=== PATIENT | male | born 1980 | race Caucasian/White ===

== ENCOUNTER 2024-06-07 20:42 | Inpatient (IN) ==
[2024-06-07 21:49] LABS: Basophils # (auto) 0.08 K/uL (0.00-0.20); Basophils % (auto) 0.7 %; Eosinophils # (auto) 0.27 K/uL (0.00-0.50); Eosinophils % (auto) 2.3 %; Hematocrit (blood only) 55.3 % (42.0-52.0); Immature Granulocytes # (auto) 0.04 K/uL (0.01-0.20); Immature Granulocytes % (auto) 0.3 %; Lymphocytes # (auto) 4.07 K/uL (1.20-3.40); Mean Corpuscular Hemoglobin 29.4 pg (25.0-34.0); Mean Corpuscular Hgb Conc 34.4 g/dL (32.0-36.0); Mean Corpuscular Volume 85.6 fL (80.0-100.0); Mean Platelet Volume 9.8 fL (9.4-12.4); Monocytes # (auto) 0.93 K/uL (0.11-0.59); Monocytes % (auto) 7.8 %; Neutrophils # (auto) 6.59 K/uL (1.40-6.50); Neutrophils % (auto) 54.9 %; Platelet Count 275 K/uL (130-400); RDW Coefficient of Variation 14.6 % (11.5-14.5); Red Blood Count 6.46 M/uL (4.70-6.10); White Blood Count 11.98 K/ul (4.8-10.8)
--- NOTE | 2024-06-07 23:46 | Emergency Department Note ---
Impression & Plan Acute CHF ED Provider Note NAME: SILVIO MOCK AGE: 44 SEX: M : 1980 ARRIVES VIA: Walk-In INFORMANT: Patient, ED PROVIDER(S): Paul Kay MD CHIEF COMPLAINT: Lower extremity swelling, shortness of breath HPI: This is a 44-year-old male presenting for lower extremity swelling and shortness of breath. Patient states that he began having significant leg swelling over the past few days. He notes he was previously on a fluid pill order to help with hypertension. He is taken multiple years ago. He notes that he has been having a new cough as well as difficulty breathing when he goes distances. He is no chest pain with this. No nausea or vomiting associated. No sore throat or headache. Notes bilateral legs are swollen equally, both tender to touch ROS: See above HPI for pertinent positives & negatives. A total of 10 systems reviewed and were otherwise negative. PAST MEDICAL HISTORY: See Below PAST SURGICAL HISTORY: See Below FAMILY HISTORY: See Below SOCIAL HISTORY: See Below HOME MEDICATIONS: See Below ALLERGIES: See Below VITALS: See Below PHYSICAL EXAMINATION: General: resting comfortably in no acute distress Head: Normocephalic and atraumatic Eyes: Normal inspection, extraocular muscles intact Ear, nose, throat: Normal external exam Neck: Normal range of motion Respiratory: Crackles at right base Cardiovascular: Regular rate/rhythm, no murmur GI: soft, nontender, no guarding or rebound Extremities: 2+ pitting edema without erythema Neuro: The patient awake and alert, appropriately conversive, no focal deficits, symmetric faces Skin: Warm, dry, and intact MEDICAL DECISION MAKING: This is a 44-year-old male presented for lower extremity swelling/shortness of breath. Patient was clinically well but does complain of bilateral extremity swelling with shortness of breath, is exertional. He has no chest pain or pleurisy with this. With bilateral extremity swelling with pitting edema, consider CHF. His chest x-ray is Independently interpreted by me as cardiomegaly without focal opacity. -Patient slight troponin elevation to just over 20. Will do repeat. Otherwise patient may require admission due to his new onset CHF. -ECG independently interpreted by me with sinus tachycardia rate of 105, left axis deviation, normal [place], normal QRS, normal QTc, no ST segment elevations consistent with STEMI criteria -Will met patient for suspected CHF otherwise exertional dyspnea and further workup. -Discussed care with Dr. Mcintosh Differential diagnosis: CHF, pneumonia, PE, ACS Independent History obtained from: Diagnostics interpreted by me: ECG: See above Cardiac Monitoring: An order was placed for continuous cardiac monitoring. The monitor shows a rate of 73 with sinus rhythm. Past Med/Surg History Problem List (Updated 06/09/24 @ 23:23 by Paul Kay MD) Morbid obesity Sleep apnea Pericardial effusion Volume overload Acute CHF (Acute) Diabetes HTN (hypertension) (Chronic) Back pain (Acute) Back pain (Acute) Forearm contusion (Acute) Lumbar radiculopathy (Acute) Lumbar radiculopathy (Acute) Medical History Morbid obesity Surgical History History of appendectomy H/O lumbosacral spine surgery Social History Smoking Status: Current every day smoker Tobacco Type: Cigarettes Hx Alcohol Use: No Hx Substance Use: No Preferred Language: Nepali Communication Ability: Effective Scale Adjuster Required: No Beliefs That Will Affect Care: None Current Living Situation: Spouse Feels Safe at Home: Yes Allergies Allergies Allergy/AdvReac Type Severity Reaction Status Date / Time ondansetron Allergy Unknown pre-syncope Verified 10/09/13 07:31 Home Meds Home Medications Medication Instructions Recorded Confirmed lisinopril 40 mg tablet 40 mg PO QAM 06/07/24 06/07/24 meloxicam 15 mg tablet 15 mg PO DAILY PRN Pain 06/07/24 06/07/24 metoprolol succinate 25 mg 25 mg PO QAM 06/07/24 06/07/24 tablet,extended release 24 hr rosuvastatin 5 mg tablet 5 mg PO QAM 06/07/24 06/07/24 testosterone 1 dose INJ DAILY 06/08/24 06/08/24 Results & Data (ED) Vital Signs Vital Signs - 24 hr 06/07/24 20:44 06/08/24 00:00 06/08/24 00:01 Temperature 36.0 C L Temperature Source Temporal Artery Scan Pulse Rate 110 H 97 H 100 H Pulse Strength Normal Respiratory Rate 16 22 Respiratory Effort / Characteristics Non-Labored Spontaneous Respiratory Depth Normal Respiratory Pattern Regular Blood Pressure 158/96 H Blood Pressure Mean 114 Pulse Oximetry 94 93 Oxygen Delivery Method Room Air Sepsis Recent Fever Within 48 Hours No Sepsis New/Unexplained Change in Mental Status No Sepsis Action Taken by Nursing No Action Required 06/08/24 00:07 Temperature Temperature Source Pulse Rate Pulse Strength Respiratory Rate Respiratory Effort / Characteristics Respiratory Depth Respiratory Pattern Blood Pressure Blood Pressure Mean Pulse Oximetry 93 Oxygen Delivery Method Room Air Sepsis Recent Fever Within 48 Hours Sepsis New/Unexplained Change in Mental Status Sepsis Action Taken by Nursing Laboratory Data 06/09/24 05:44 06/09/24 05:44 Lab Results 06/07/24 06/07/24 06/08/24 Range/Units 21:10 22:44 00:04 WBC 11.98 H (4.8-10.8) K/ul RBC 6.46 H (4.70-6.10) M/uL Hgb 19.0 H (14.0-18.0) g/dl Hct 55.3 H (42.0-52.0) % MCV 85.6 (80.0-100.0) fL MCH 29.4 (25.0-34.0) pg MCHC 34.4 (32.0-36.0) g/dL RDW Std Deviation 43.0 (36.4-46.3) fL RDW Coeff of Lee 14.6 H (11.5-14.5) % Plt Count 275 (130-400) K/uL MPV 9.8 (9.4-12.4) fL Immature Gran % (Auto) 0.3 % Neut % (Auto) 54.9 % Lymph % (Auto) 34.0 % [place] % (Auto) 7.8 % Eos % (Auto) 2.3 % Baso % (Auto) 0.7 % Neut # (Auto) 6.59 H (1.40-6.50) K/uL Lymph # (Auto) 4.07 H (1.20-3.40) K/uL [place] # (Auto) 0.93 H (0.11-0.59) K/uL Eos # (Auto) 0.27 (0.00-0.50) K/uL Baso # (Auto) 0.08 (0.00-0.20) K/uL Immature Gran # (Auto) 0.04 (0.01-0.20) K/uL PT 9.6 (9.0-12.0) Seconds INR 0.9 (0.9-1.1) APTT 25 (21-31) Seconds PTT Ratio 0.9 Sodium Cancelled TNP Potassium Cancelled TNP Chloride Cancelled 99 Carbon Dioxide Cancelled 27 Anion Gap Cancelled TNP BUN Cancelled 19 Creatinine Cancelled 1.24 Est Cr Clr Drug Dosing Cancelled 107.7 eGFR Cancelled 72.62 BUN/Creatinine Ratio Cancelled 15.3 Glucose Cancelled 139 H Calcium Cancelled 9.3 Total Bilirubin Cancelled 0.5 AST Cancelled TNP ALT Cancelled 38 Alkaline Phosphatase Cancelled TNP Troponin I High Sens 21.7 H 22.6 H (0-20) pg/ml B-Natriuretic Peptide 60 (0-100) pg/ml Total Protein Cancelled 7.2 Albumin Cancelled TNP Globulin Cancelled TNP Albumin/Globulin Ratio Cancelled TNP SARS-CoV-2 (PCR) NEGATIVE (Negative) Influenza Type A (PCR) Negative (Neg) Influenza Type B (PCR) Negative (Neg) RSV (RT-PCR) Negative (Neg) Administered Medications Furosemide (Furosemide 40 Mg/4 Ml Vial) 40 mg IV [id number] [facility] Stop: 07/08/24 08:59 Last Admin: 06/09/24 17:34 Dose: 40 mg Documented By: Admin: 06/09/24 09:50 Dose: 40 mg Documented By: Admin: 06/08/24 18:20 Dose: 40 mg Documented By: Admin: 06/08/24 08:12 Dose: 40 mg Documented By: ROSSI Heparin Sodium (Porcine) (Heparin Sod 5,000 Unit/0.5 Ml Vial) 7,500 units SQ Q12 [facility] Stop: 07/08/24 08:59 Last Admin: 06/09/24 21:47 Dose: 7,500 units Documented By: Admin: 06/09/24 10:03 Dose: 7,500 units Documented By: Admin: 06/08/24 20:28 Dose: 7,500 units Documented By: Admin: 06/08/24 08:11 Dose: 7,500 units Documented By: ROSSI Insulin Aspart (Insulin Aspart Per Unit Charge) 0 units SC ACHS [facility] Stop: 07/08/24 07:29 Last Admin: 06/09/24 21:48 Dose: 2 units Documented By: JENNY Co-signed By: YOVANI Admin: 06/09/24 17:45 Dose: 4 units Documented By: Co-signed By: LUIS Admin: 06/09/24 12:48 Dose: 3 units Documented By: Co-signed By: KAJAL Admin: 06/09/24 10:03 Dose: 7 units Documented By: Co-signed By: KAJAL Admin: 06/08/24 20:22 Dose: Not Given Documented By: Admin: 06/08/24 18:20 Dose: 2 units Documented By: LYLA Co-signed By: TEMO Admin: 06/08/24 13:51 Dose: 3 units Documented By: ROSSI Co-signed By: LUCY Admin: 06/08/24 10:35 Dose: 5 units Documented By: ROSSI Co-signed By: DEE DEE Lisinopril (Lisinopril 40 Mg Tab) 40 mg PO [facility] Stop: 07/08/24 08:59 Last Admin: 06/09/24 09:50 Dose: 40 mg Documented By: Admin: 06/08/24 08:11 Dose: 40 mg Documented By: ROSSI Metoprolol Succinate (Metoprolol Succ 25mg Ext Rel Tab) 25 mg PO [facility] Stop: 07/08/24 08:59 Last Admin: 06/09/24 09:49 Dose: 25 mg Documented By: Admin: 06/08/24 08:10 Dose: 25 mg Documented By: ROSSI Rosuvastatin Calcium (Rosuvastatin Calcium 5 Mg Tab) 5 mg PO [facility] Stop: 07/08/24 08:59 Last Admin: 06/09/24 09:49 Dose: 5 mg Documented By: Admin: 06/08/24 08:11 Dose: 5 mg Documented By: ROSSI Discontinued Medications Furosemide (Furosemide 40 Mg/4 Ml Vial) 40 mg IV ONE ONE Stop: 06/08/24 00:37 Last Admin: 06/08/24 01:02 Dose: 40 mg Documented By: ADRIANA Ceftriaxone Sodium (Rocephin) 2,000 mg in 50 mls @ 100 mls/hr IV Q24H [facility] Stop: 06/13/24 05:59 Last Infusion: 06/09/24 05:50 Dose: Infused Documented By: Admin: 06/09/24 05:16 Dose: 100 mls/hr Documented By: Infusion: 06/08/24 07:08 Dose: Infused Documented By: Admin: 06/08/24 06:38 Dose: 100 mls/hr Documented By: BRENNA Doxycycline Hyclate 100 mg/ (Dextrose) 100 mls @ 50 mls/hr IV Q12H [facility] Stop: 06/13/24 05:59 Last Infusion: 06/09/24 08:10 Dose: Infused Documented By: Admin: 06/09/24 06:02 Dose: 50 mls/hr Documented By: Infusion: 06/08/24 23:09 Dose: Infused Documented By: Admin: 06/08/24 20:12 Dose: 50 mls/hr Documented By: HDDeirdre Infusion: 06/08/24 08:38 Dose: Infused Documented By: Admin: 06/08/24 06:38 Dose: 50 mls/hr Documented By: BRENNA Ioversol (Optiray 320 125ml) 120 ml IV ONCE ONE Stop: 06/08/24 06:32 Last Admin: 06/08/24 06:32 Dose: 120 ml Documented By: SELWYN Spironolactone (Spironolactone 12.5 Mg Tab) 12.5 mg PO NOW ONE Stop: 06/09/24 15:31 Last Admin: 06/09/24 16:10 Dose: 12.5 mg Documented By: Discharge Plan Visit Data Chief Complaint: Illness Stated Complaint: LUNGS FILLED WITH FLUID,PAIN ED Provider: Paul Kay Discharge Problem: Acute CHF Patient Disposition: Admitted As Inpatient Discharge Instructions Interventions: ED Discharge Assessment Last Done: 06/08/24 02:15
[2024-06-08 00:07] LABS: INR 0.9 (0.9-1.1); Partial Thromboplastin Ratio 0.9; Partial Thromboplastin Time 25 Seconds (21-31); Prothrombin Time 9.6 Seconds (9.0-12.0)
[2024-06-08 00:16] LABS: Alanine Aminotransferase 38 U/L (7-52); BUN Creatinine Ratio 15.3 (10-20); Bilirubin,Total 0.5 mg/dl (0.2-1.0); Blood Urea Nitrogen 19 mg/dl (6-23); Calcium 9.3 mg/dl (8.6-10.3); Carbon Dioxide 27 mmol/L (21-32); Chloride 99 mmol/L (98-107); Creatinine Clr Calc Pharmacy 107.7 ml/min; Glucose 139 mg/dl (70-99(Fasting)); Total Protein 7.2 gm/dl (6.0-8.3)
[2024-06-08 00:24] LABS: Troponin I High Sensitivity 22.6 pg/ml (0-20)
--- NOTE | 2024-06-08 00:55 | History & Physical Report ---
Date of Service June 08, 2024 Assessment & Plan (1) Acute CHF: Plan: 44-year-old male with past med history significant for type 2 diabetes, hypertension, morbid obesity, obstructive sleep apnea currently not using CPAP as not tolerating it as per patient comes because of shortness of breath going on since last Monday and also swelling in the lower extremities since same time.Also complaining of 4/5 in severity pain in lower extremities. Also having cough. Denies any chest pain. No fevers. No nausea. No abdominal pain. Normal bowel and bladder movements. No headache. No dizziness. No blurred vision. No earache no runny nose or sore throat. Hemodynamics are okay. Patient says he started taking testosterone monthly injections couple of months ago.Patient states he stopped taking Mounjaro couple of weeks ago as his sugar levels were going down. Acute CHF Presents with shortness of breath and bilateral lower extremity edema Will place on IV Lasix 40 mg twice daily Daily weights I's and O's Telemetry Will follow echo empiric antibiotics will follow procalcitonin and if negative will d/c antibiotics. Consult cardiology for further recommendations B/l Lower extremity edema doppler shows:1. Limited visualization of calf vessels bilaterally due to Calf edema. 2. 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 3. A possible partial occlusive thrombus is seen within the right proximal popliteal vein. 4. Possible absent color flow in the right distal popliteal and peroneal veins could be from compressing edema. 5. Please correlate clinically. Repeating the Doppler examination after 1 to 2 weeks is advised. ordered di dmer and CTA chest Bedside doppler b/l dorsalis pedis heard. can consider repeating Doppler if cta chest negative for PE Obstructive sleep apnea Not using CPAP as he could not tolerate it Nocturnal pulse ox study Morbid obesity Counseling Type 2 diabetes Stopped Mounjaro couple of weeks ago as his sugars were going down as per his patient Will check HbA1c levels Insulin sliding scale Close follow-up Hypertension On lisinopril and metoprolol succinate Will monitor Elevated hemoglobin Follow repeat labs consider heme/onco consult DVT prophylaxis Heparin subcu Disposition Telemetry Full code. History of Present Illness Chief Complaint: Shortness of breath and lower extremity edema Primary Care Provider: Kike Juares MD 44-year-old male with past med history significant for type 2 diabetes, hypertension, morbid obesity, obstructive sleep apnea currently not using CPAP as not tolerating it as per patient comes because of shortness of breath going on since last Monday and also swelling in the lower extremities since same time.Also complaining of 4/5 in severity pain in lower extremities. Also having cough. Denies any chest pain. No fevers. No nausea. No abdominal pain. Nor mal bowel and bladder movements. No headache. No dizziness. No blurred vision. No earache no runny nose or sore throat. Hemodynamics are okay. Patient says he started taking testosterone monthly injections couple of months ago.Patient states he stopped taking Mounjaro couple of weeks ago as his sugar levels were going down. Past medical history. As mentioned above Past surgical history. Lumbosacral spine injection. Orchiopexy for undescended testes. Small bowel endoscopy with biopsy. Vasectomy. Social history. . Smokes 0.1 pack a day for last 18 years. Alcohol rarely. No drug use. Family history. Father had [place] at age 48. Hypertension. Maternal grandfather from [place] at age of 46. Paternal grandfather had hypertension and from [place]. Aunt has diabetes Allergies Allergy/AdvReac Type Severity Reaction Status Date / Time ondansetron Allergy Unknown pre-syncope Verified 10/09/13 07:31 Home Medications Medication Instructions Recorded Confirmed Type lisinopril 40 mg tablet 40 mg PO QAM 06/07/24 06/07/24 History meloxicam 15 mg tablet 15 mg PO DAILY PRN Pain 06/07/24 06/07/24 History metoprolol succinate 25 mg 25 mg PO QAM 06/07/24 06/07/24 History tablet,extended release 24 hr rosuvastatin 5 mg tablet 5 mg PO QAM 06/07/24 06/07/24 History testosterone 1 dose INJ DAILY 06/08/24 06/08/24 History Past Med/Surg History Problem List Acute CHF Diabetes HTN (hypertension) (Chronic) Back pain (Acute) Back pain (Acute) Forearm contusion (Acute) Lumbar radiculopathy (Acute) Lumbar radiculopathy (Acute) Medical History Morbid obesity Surgical History History of appendectomy H/O lumbosacral spine surgery Social History Smoking Status: Current every day smoker Tobacco Type: Cigarettes Hx Alcohol Use: No Hx Substance Use: No Preferred Language: Australian Communication Ability: Effective Presentation Specialist Required: No Beliefs That Will Affect Care: None Current Living Situation: Spouse Feels Safe at Home: Yes Review of Systems Review of Systems: All systems reviewed & are unremarkable except as noted in HPI & below Physical Exam Physical Exam: General- Not in distress Head- atraumatic Eyes- PERRL. ENT- oropharynx clear Neck- supple, no JVD. Lungs- clear to auscultation mild bibasilar crackles, no wheezing Heart- regular rate and rhythm; no murmur, no gallop. Abdomen- normal bowel sounds, soft, nontender, no distension Extremities- b/l lower extremity +2 edema with mild erythematous changes Neuro- alert, oriented PERRL,no facial palsy; no dysarthria; moves extremities Results & Data Results & Data Vital Signs (Past 12 Hours) Vital Signs Temp Pulse Resp BP Pulse Ox O2 Del Method 06/08/24 00:07 93 Room Air 06/08/24 00:01 100 H 06/08/24 00:00 97 H 22 158/96 H 93 06/07/24 20:44 36.0 C L 110 H 16 94 Room Air Diagnostic Findings Laboratory Results WBC 11.98 K/ul (4.8-10.8) H 06/07/24 21:10 RBC 6.46 M/uL (4.70-6.10) H 06/07/24 21:10 Hgb 19.0 g/dl (14.0-18.0) H 06/07/24 21:10 Hct 55.3 % (42.0-52.0) H 06/07/24 21:10 MCV 85.6 fL (80.0-100.0) 06/07/24 21:10 MCH 29.4 pg (25.0-34.0) 06/07/24 21:10 MCHC 34.4 g/dL (32.0-36.0) 06/07/24 21:10 RDW Std Deviation 43.0 fL (36.4-46.3) 06/07/24 21:10 RDW Coeff of Lee 14.6 % (11.5-14.5) H 06/07/24 21:10 Plt Count 275 K/uL (130-400) 06/07/24 21:10 MPV 9.8 fL (9.4-12.4) 06/07/24 21:10 Immature Gran % (Auto) 0.3 % 06/07/24 21:10 Neut % (Auto) 54.9 % 06/07/24 21:10 Lymph % (Auto) 34.0 % 06/07/24 21:10 [place] % (Auto) 7.8 % 06/07/24 21:10 Eos % (Auto) 2.3 % 06/07/24 21:10 Baso % (Auto) 0.7 % 06/07/24 21:10 Neut # (Auto) 6.59 K/uL (1.40-6.50) H 06/07/24 21:10 Lymph # (Auto) 4.07 K/uL (1.20-3.40) H 06/07/24 21:10 [place] # (Auto) 0.93 K/uL (0.11-0.59) H 06/07/24 21:10 Eos # (Auto) 0.27 K/uL (0.00-0.50) 06/07/24 21:10 Baso # (Auto) 0.08 K/uL (0.00-0.20) 06/07/24 21:10 Immature Gran # (Auto) 0.04 K/uL (0.01-0.20) 06/07/24 21:10 PT 9.6 Seconds (9.0-12.0) 06/07/24 22:44 INR 0.9 (0.9-1.1) 06/07/24 22:44 APTT 25 Seconds (21-31) 06/07/24 22:44 PTT Ratio 0.9 06/07/24 22:44 Sodium TNP 06/07/24 22:44 Potassium TNP 06/07/24 22:44 Chloride 99 mmol/L (98-107) 06/07/24 22:44 Carbon Dioxide 27 mmol/L (21-32) 06/07/24 22:44 Anion Gap TNP 06/07/24 22:44 BUN 19 mg/dl (6-23) 06/07/24 22:44 Creatinine 1.24 mg/dl (0.6-1.4) 06/07/24 22:44 Est Cr Clr Drug Dosing 107.7 ml/min 06/07/24 22:44 eGFR 72.62 06/07/24 22:44 BUN/Creatinine Ratio 15.3 (10-20) 06/07/24 22:44 Glucose 139 mg/dl (70-99(Fasting)) H 06/07/24 22:44 Calcium 9.3 mg/dl (8.6-10.3) 06/07/24 22:44 Total Bilirubin 0.5 mg/dl (0.2-1.0) 06/07/24 22:44 AST TNP 06/07/24 22:44 ALT 38 U/L (7-52) 06/07/24 22:44 Alkaline Phosphatase TNP 06/07/24 22:44 Troponin I High Sens 22.6 pg/ml (0-20) H 06/07/24 22:44 B-Natriuretic Peptide 60 pg/ml (0-100) 06/07/24 21:10 Total Protein 7.2 gm/dl (6.0-8.3) 06/07/24 22:44 Albumin TNP 06/07/24 22:44 Globulin TNP 06/07/24 22:44 Albumin/Globulin Ratio TNP 06/07/24 22:44 SARS-CoV-2 (PCR) NEGATIVE (Negative) 06/08/24 00:04 Influenza Type A (PCR) Negative (Neg) 06/08/24 00:04 Influenza Type B (PCR) Negative (Neg) 06/08/24 00:04 RSV (RT-PCR) Negative (Neg) 06/08/24 00:04 ECG Additional Comments: ECG. Sinus tachy rate of 105. Bilateral arterial enlargement. Left axis deviation. Possible inferior and anterior infarct age indeterminant. Code Status & VTE Plan VTE Prophylaxis Plan VTE Prophylaxis will be ordered: Yes
[2024-06-08] MEDS: FUROSEMIDE 40 MG/4 ML VIAL IV ONE (01:02)
[2024-06-08 01:12] LABS: Influenza A virus by PCR Negative (Neg); Influenza B virus by PCR Negative (Neg); RSV by PCR Negative (Neg); SARS CoV2 RNA(COVID-19) Ceph NEGATIVE (Negative)
[2024-06-08 01:28] LABS: Potassium 3.7 mmol/L (3.5-5.1)
--- NOTE | 2024-06-08 01:44 | XRay Report ---
Exam(s): XR CXR 1 VIEW EXAM: XR Chest, 1 View CLINICAL HISTORY: Chest Pain, nonspecific. TECHNIQUE: Frontal view of the chest. COMPARISON: No relevant prior studies available. FINDINGS: Lungs: Bilateral airspace opacities may represent pulmonary edema and/or atypical infection. Pleural space: Small bilateral pleural effusions. No pneumothorax. Heart: Cardiomegaly. Mediastinum: Unremarkable. Normal mediastinal contour. Bones/joints: Degenerative changes of the spine are noted. No acute fracture. IMPRESSION: 1. Bilateral airspace opacities may represent pulmonary edema and/or atypical infection. 2. Cardiomegaly. 3. Small bilateral pleural effusions. Electronically signed by: Diana Villegas MD 06/08/24 01:43 AM
--- OUTSIDE RECORDS SUMMARY | 2024-06-08 02:12 | External Medical Summary | Summary of Care ---
Author Name Unknown Organization [facility] Address [address] [place] [address] Phone [phone] Care Team Providers Care Spot Facer Name Role Phone Kike Juares MD Primary Care Provider +1- [phone] Encounter Details Date Type Department Care Team (Late st Contact Info) Description 12/25/2023 Orders Only Outcomes Research Department [address] [place] [address] Kassidy Merino CHRA [facility] Other*[id number] Allergies No known active allergiesdocumented as of this encounter (statuses as of 12/25/2023) Medications Medication Sig Dispensed Refills Start Date End Date Status Rosuvastatin Calcium 5 MG Oral Tablet (Crestor)Indications: Dyslipidemia Take 1 Tablet by mouth in the morning. 90 Tablet 3 06/13/2023 Active Lisinopril 40 MG Oral TabletIndications:Ess ential hypertension with goal blood pressure less than 140/90 Take 1 Tablet by mouth in the morning. 90 Tablet 3 06/13/2023 Active Metoprolol Succinate ER 25 MG Oral Tablet Extended Release 24 Hour (toPROL XL)Indications:Essent ial hypertension with goal blood pressure less than 140/90 Take 1 Tablet by mouth in the morning. 90 Tablet 3 06/13/2023 Active Trulicity 3 MG/0.5ML Subcutaneous Solution Pen-injector (Dulaglutide)Indicati ons:Type 2 diabetes mellitus with hemoglobin A1c goal of less than 7.0% (HCC) Inject 3 mg under the skin once a week. 2 mL 3 06/13/2023 Active Meloxicam 15 MG Oral Tablet (Mobic)Indications:Ch ronic bilateral low back pain with bilateral sciatica TAKE 1 TAB BY MOUTH ONCE PER DAY WHEN NEEDED FOR PAIN 30 Tablet 3 08/08/2023 Active amLODIPine Besylate 10 MG Oral Tablet (Norvasc)Indications: HTN, goal below 140/90 Take 1 Tablet by mouth in the morning. 90 Tablet 3 08/16/2023 Active Mounjaro 2.5 MG/0.5ML Subcutaneous Solution Pen-injector (Tirzepatide)Indicati ons:Type 2 diabetes mellitus with hemoglobin A1c goal of less than 7.0% ([facility]) Inject 2.5 mg under the skin once a week. 2 mL 2 09/25/2023 09/24/2024 Active documented as of this encounter (statuses as of 12/25/2023) Active Problems Problem Noted Date Diagnosed Date Type 2 diabetes mellitus wit h hemoglobin A1c goal of less than 7.0% 04/22/2022 Body mass index (BMI) of 45.0 to 49.9 in adult 0 01/11/2021 Overview: Per Obesity protocol - Essential hypertension with goal blood pressure less than 140/90 04/07/2017 Tobacco use disorder 04/07/2017 documented as of this encounter (statuses as of 12/25/2023) Resolved Problems Problem Noted Date Diagnosed Date Resolved Date Prediabetes 03/14/2022 04/22/2022 Overview: Per Prediabetes protocol Body mass index (BMI) of 40. 0 to 44.9 in adult 03/12/2018 01/19/2021 Overview: Per Obesity protocol #1 Gastroesophageal reflux dise ase with esophagitis 04/07/2017 04/22/2022 Obstructive sleep apnea of adult 04/07/2017 07/03/2019 Overview: Patient stated that he is no longer using cpap, he has lost a lot of weight Non compliance with medical treatment 04/07/2017 07/03/2019 Overview: Historical Herniated lumbar disc without myelopathy 08/26/2013 04/07/2017 Elevated blood pressure, situational 08/26/2013 04/07/2017 Chronic bilateral low back p ain without sciatica 11/20/2012 04/22/2022 Spasm of muscle 11/20/2012 08/26/2013 Nausea with vomiting 03/31/2010 014 Other chest pain 01/18/2010 08/26/2013 Noise-induced hearing loss 08/26/2009 1 06/07/2016 Dyspnea and respiratory abnormality 08/26/2009 04/07/2017 Overview: ICD-10 update of inactive term Chronic rhinitis 08/26/2009 08/26/2013 Morbid obesity due to excess calories 08/26/2009 04/22/2022 Esophageal reflux 08/26/2009 04/07/2017 Acute nasopharyngitis 08/26/20092016 Deviated nasal septum 08/26/20092016 History of tobacco use 08/26/200904/07 Sleep apnea 08/03/2009 04/07/2017 High triglycerides 07/16/2009 7 Dyslipidemia, goal LDL below 100 07/16/2009 04/07/2017 Family history of ischemic heart disease 07/15/2009 04/07/2017 Family history of diabetes mellitus 07/15/2009 04/07/2017 Palpitations 07/15/2009 04/07/2017 Undiagnosed cardiac murmurs 04/07/2017 Overview: occasional palpitations, had Holter and echo as adolescent Hypertrophy tonsils 04/07/20 17 documented as of this encounter (statuses as of 12/25/2023) Immunizations Name Administration Dates Next Due Diptheria/Tetanus (Adult) 05/05/2006 TDAP (age 10 and older)(Boostrix) 11/20/2012 documented as of this encounter Social History Tobacco Use Types Packs/Day Years Used Date Smoking Tobacco: Every Day Cigarettes 0.1 18 Smokeless Tobacco: Current Chew Last attempted to quit: 06/29/2009 Comments:started age 16-pack lasts 2 weeks; occasional chew-1 can/week Alcohol Use Standard Drinks/Week Comments Yes 0 (1 standard drink = 0.6 oz pur e alcohol) rare PHQ-2 Answer Date Recorded PHQ Adult Total Score 0 04/22/2022 Hunger Vital Sign Answer Date Recorded Within the past 12 months, y ou worried that your food would run out before you got the money to buy more. Never true 11/08/19 23 Within the past 12 months, t he food you bought just didn't last and you didn't have money to get more. Never true 11/07/2022 Utilities Answer Date Recorded Do you have trouble paying y our heating, water, or electric bill? (Adult - for ages 18 years and over) Not on file 11/21/2023 Is your family able to pay t he heat, water, or electric bill? (Household - for ages 0-17 years) Not on file 11/21/2023 Does your family have access to good internet? (Household - for ages 0-17 years) Not on file 11/21/2023 Social Connections Answer Date Recorded How often do you feel lonely or isolated from those around you? (Adult - for ages 18 years and over) Not on file 11/21/2023 Sex and Gender Information Value Date Recorded Sex Assigned at Male 11/06/2018 11:38 AM EDT Gender Identity Male 11/06/2018 11:38 AM EDT Sexual Orientation Straight 10/29/2022 3: 12 AM EDT Job Start Date Occupation Industry Not on file Not on file Not on file documented as of this encounter Plan of Treatment Scheduled Orders Name Type Priority Associated Diagnoses Orde r Schedule MYCODE SUBSEQUENT ADULT Lab Routine [facility] Other*[id number] Every 6 Months for 2 Occurrences starting 12/25/2023 until 01/13/2025 Health Maintenance Due Date Last Done Comments DISCUSS TOBACCO CESSATION (REFER TO SMARTSET #7149) 1978 Pneumococcal Vaccine: Pediatrics (0 to 5 Years) and At-Risk Patients (6 to 64 Years) (2 of 2 - PCV) 08/17/1985 08/17/1984 HIV Screening 1993 Diabetic Eye Exam 1996 Diabetic Foot Exam 1996 Hepatitis B Vaccine (3 of 3 - 3-dose series) 04/30/1996 02/14/1996, 02/14/1996, 01/09/1996, Additional history exists DTaP,Tdap,and Td Vaccines (7 - Td or Tdap) 11/20/2022 11/20/2012, 05/05/2006, 01/27/1996, Additional history exists COVID-19 Vaccine ( - 2022- season) 2023 Cologuard 2023 Colonoscopy 2023 Colorectal Cancer Screening 2023 Fecal Occult Blood Test 2023 Sigmoidoscopy 2023 Depression Screening 04/22/2023 04/22/2022 HbA1c 05/24/2023 11/22/2022, 02/04, 10/12/2021, Additional history exists Albumin/Creatinine Ratio 11/23/2023 023, 11/28/2020, 08/13/2019 GFR 11/23/2023 11/22/2022, 02/04, 10/12/2021, Additional history exists Influenza Vaccine (FLU shot) (#1) 2024 Lipid Panel 11/23/2027 11/22/2022, 02/04, 10/12/2021, Additional history exists HPV (Gardasil) Vaccine Aged Out No lo nger eligible based on patient's age to complete this topic MENINGOCOCCAL (MENACTRA/MENVEO) Aged Out No longer eligible based on patient's age to complete this topic documented as of this encounter Medical Devices Implanted Type Area Adobe Layer Device Identifier Shelf Expiration Date Model / Serial / Lot Tube Ventilation Petty [id number] - [id number] Implanted:Qty: 1 on 01/05/2023 by Sahil Almendarez MD at OR [facility] [place] Right: Ear [employer] 05/19/2032 [id number] / / Tube Ventilation Petty [id number] - [id number] Implanted:Qty: 1 on 01/05/2023 by Armando Mendenhall DO at OR [facility] [place] Left: Ear [employer] 05/19/2032 [id number] / / documented as of this encounter Visit Diagnoses Diagnosis [facility] Other*[id number] documented in this encounter Care Teams Spot Facer Relationship Specialty Start Date End Date Kike Juares MD [address] [place] [address] PCP - General Family Medicine 12/01/20 documented as of this encounter
--- OUTSIDE RECORDS SUMMARY | 2024-06-08 02:12 | External Medical Summary | Summary of Care ---
Author Name Unknown Organization [facility] Address [address] [place] [address] Phone [phone] Care Team Providers Care Activity Therapist Name Role Phone Beth Call MD Primary Care Provider +1- [phone] Reason for Visit * Reason Comments eRx-Medication Refill Encounter Details Date Type Department Care Team (Late st Contact Info) Description 05/14/2024 Refill [facility] [address] [facility] [place] [address] Beth Call MD [address], [place] [id number] Type 2 diabetes mellitus with hemoglobin A1c goal of less than 7.0% ([facility]) Allergies No known active allergiesdocumented as of this encounter (statuses as of 05/15/2024) Medications Rosuvastatin Calcium 5 MG Oral Tablet (Crestor)Indica tions:Dyslipide estefania Take 1 Tablet by mouth in the morning. 90 Tablet 3 024 Active Lisinopril 40 MG Oral TabletIndicatio ns:Essential hypertension with goal blood pressure less than 140/90 Take 1 Tablet by mouth in the morning. 90 Tablet 3 024 Active Metoprolol Succinate ER 25 MG Oral Tablet Extended Release 24 Hour (toPROL XL)Indications: Essential hypertension with goal blood pressure less than 140/90 Take 1 Tablet by mouth in the morning. 90 Tablet 3 024 Active Trulicity 3 MG/0.5ML Subcutaneous Solution Pen-injector (Dulaglutide)In dications:Type 2 diabetes mellitus with hemoglobin A1c goal of less than 7.0% (HCC) Inject 3 mg under the skin once a week. 2 mL 3 024 Active Meloxicam 15 MG Oral Tablet (Mobic)Indicati ons:Chronic bilateral low back pain with bilateral sciatica TAKE 1 TAB BY MOUTH ONCE PER DAY WHEN NEEDED FOR PAIN 30 Tablet 3 024 Active amLODIPine Besylate 10 MG Oral Tablet (Norvasc)Indica tions:HTN, goal below 140/90 Take 1 Tablet by mouth in the morning. 90 Tablet 3 024 Active Mounjaro 5 MG/0.5ML Subcutaneous Solution Auto-injector (Tirzepatide)In dications:Type 2 diabetes mellitus with hemoglobin A1c goal of less than 7.0% (HCC) INJECT 5 MG SUBCUTANEOUSLY WEEKLY 6 mL 024 Active Mounjaro 5 MG/0.5ML Subcutaneous Solution Auto-injector (Tirzepatide)In dications:Type 2 diabetes mellitus with hemoglobin A1c goal of less than 7.0% (HCC) INJECT 5 MG SUBCUTANEOUSLY WEEKLY 2 mL 024 2023 Discontinued documented as of this encounter (statuses as of 05/15/2024) Active Problems Problem Noted Date Diagnosed Date Type 2 diabetes mellitus wit h hemoglobin A1c goal of less than 7.0% 04/22/2022 Body mass index (BMI) of 45.0 to 49.9 in adult 0 01/11/2021 Overview: Per Obesity protocol - Essential hypertension with goal blood pressure less than 140/90 04/07/2017 Tobacco use disorder 04/07/2017 documented as of this encounter (statuses as of 05/15/2024) Resolved Problems Problem Noted Date Diagnosed Date Resolved Date Prediabetes 03/14/2022 04/22/2022 Overview: Per Prediabetes protocol Body mass index (BMI) of 40. 0 to 44.9 in adult 03/12/2018 01/19/2021 Overview: Per Obesity protocol #1 Gastroesophageal reflux dise ase with esophagitis 04/07/2017 04/22/2022 Obstructive sleep apnea of adult 04/07/2017 07/03/2019 Overview (07/03/2019): Patient stated that he is no longer using cpap, he has lost a lot of weight Non compliance with medical treatment 04/07/2017 07/03/2019 Overview (07/03/2019): Historical Herniated lumbar disc without myelopathy 08/26/2013 04/07/2017 Elevated blood pressure, situational 08/26/2013 04/07/2017 Chronic bilateral low back p ain without sciatica 11/20/2012 04/22/2022 Spasm of muscle 11/20/2012 08/26/2013 Nausea with vomiting 03/31/2010 014 Other chest pain 01/18/2010 08/26/2013 Noise-induced hearing loss 08/26/2009 1 06/07/2016 Dyspnea and respiratory abnormality 08/26/2009 04/07/2017 Overview (03/28/2017): ICD-10 update of inactive term Chronic rhinitis [...] Palpitations 07/15/2009 04/07/2017 Undiagnosed cardiac murmurs 04/07/2017 Overview (07/15/2009): occasional palpitations, had Holter and echo as adolescent Hypertrophy tonsils 04/07/20 17 documented as of this encounter (statuses as of 05/15/2024) Immunizations Name Administration Dates Next Due Diptheria/Tetanus [...] Assigned at Male 11/06/2018 11:38 AM EDT Legal Sex Male 5:58 AM EST Gender Identity Male 11/06/2018 11:38 AM EDT Sexual Orientation Straight 10/29/2022 3: 12 AM EDT 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 Per refill protocol patient should have lipid panel and A1C on file within past year. Lab work was already ordered. Added reminder note to pharmacy. Thanks, Joanne Ornelas [facility] Clinical Pharmacist [facility] ([facility]) [phone] documented in this encounter Plan of Treatment Health Maintenance Due Date Last Done Comments DISCUSS TOBACCO CESSATION (REFER TO SMARTSET #7283) 1978 Pneumococcal Vaccine: Pediatrics (0 to 5 Years) and At-Risk Patients (6 to 64 Years) (2 of 2 - PCV) 08/17/1985 08/17/1984 HIV Screening 1993 Diabetic Eye Exam 1996 Diabetic Foot Exam 1996 Hepatitis B Vaccine (3 of 3 - 3-dose series) 04/30/1996 02/14/1996, 02/14/1996, 01/09/1996, Additional history exists DTap/Tdap Vaccines (7 - Td or Tdap) 11/20/2022 11/20/2012, 05/05/2006, 01/27/1996, Additional history exists Cologuard 2023 Colonoscopy 2023 Colorectal Cancer Screening 2023 Fecal Occult Blood Test 2023 Sigmoidoscopy 2023 Depression Screening 04/22/2023 04/22/2022 HbA1c 05/24/2023 11/22/2022, 02/04, 10/12/2021, Additional history exists Albumin/Creatinine Ratio 11/23/2023 023, 11/28/2020, 08/13/2019 GFR 11/23/2023 11/22/2022, 02/04, 10/12/2021, Additional history exists COVID-19 Vaccine ( season) 2024 Influenza Vaccine (FLU shot) (#1) 2024 Lipid Panel 11/23/2027 11/22/2022, 02/04, 10/12/2021, Additional history exists HPV (Gardasil) Vaccine Aged Out No lo nger eligible based on patient's age to complete this topic MENINGOCOCCAL (MENACTRA/MENVEO) Aged Out No longer eligible based on patient's age to complete this topic documented as of this encounter Medical Devices Implanted Type Area Pickle Cutter Device Identifier Shelf Expiration Date Model / Serial / Lot Tube Ventilation Petty [id number] - [id number] Implanted:Qty: 1 on 01/05/2023 by Sahil Almendarez MD [place] [facility] [place] Right: Ear [employer] 05/19/2032 [id number] / / Tube Ventilation Petty [id number] - [id number] Implanted:Qty: 1 on 01/05/2023 by Armando Mendenhall DO at [place] [facility] [place] Left: Ear [employer] 05/19/2032 [id number] / / documented as of this encounter Visit Diagnoses Diagnosis Type 2 diabetes mellitus with hemoglobin A1c goal of less than 7.0% (HCC) documented in this encounter Care Teams Activity Therapist Relationship Specialty Start Date End Date Beth Call MD [address] [place] [address] PCP - General Family Medicine 12/01/20 documented as of this encounter
--- OUTSIDE RECORDS SUMMARY | 2024-06-08 02:12 | External Medical Summary | Summary of Care ---
Author Name Unknown Organization [facility] Address [address] [place] [address] Phone [phone] Care Team Providers Care Ramp Agent Name Role Phone Beth Call MD Primary Care Provider +1- [phone] Reason for Referral * Medication Prior Authorization - Pending Review Specialty Diagnoses / Procedures Referred By Contac t Referred To Contact Diagnoses Type 2 diabetes mellitus with hemoglobin A1c goal of less than 7.0% ([facility]) Beth Call MD [address] [place] [address] Referral ID Status Reason Start Date Expiration Date V isits Requested Visits Authorized [id number] Pending Review [phone] Reason for Visit * Reason Comments eRx-Medication Refill Encounter Details Date Type Department Care Team (Late st Contact Info) Description 01/08/2024 Refill [facility] [address] [place] [id number] Beth Call MD [address] [place], [place] [id number] Type 2 diabetes mellitus with hemoglobin A1c goal of less than 7.0% ([facility]) Allergies No known active allergiesdocumented as of this encounter (statuses as of 01/11/2024) Medications Medication Sig Dispensed Refills Start Date End Date Status Rosuvastatin Calcium 5 MG Oral Tablet (Crestor)Indication s:Dyslipidemia Take 1 Tablet by mouth in the morning. 90 Tablet 3 06/13/2023 Active Lisinopril 40 MG Oral TabletIndications:E ssential hypertension with goal blood pressure less than 140/90 Take 1 Tablet by mouth in the morning. 90 Tablet 3 06/13/2023 Active Metoprolol Succinate ER 25 MG Oral Tablet Extended Release 24 Hour (toPROL XL)Indications:Esse ntial hypertension with goal blood pressure less than 140/90 Take 1 Tablet by mouth in the morning. 90 Tablet 3 06/13/2023 Active Trulicity 3 MG/0.5ML Subcutaneous Solution Pen-injector (Dulaglutide)Indica tions:Type 2 diabetes mellitus with hemoglobin A1c goal of less than 7.0% (HCC) Inject 3 mg under the skin once a week. 2 mL 3 06/13/2023 Active Meloxicam 15 MG Oral Tablet (Mobic)Indications: Chronic bilateral low back pain with bilateral sciatica TAKE 1 TAB BY MOUTH ONCE PER DAY WHEN NEEDED FOR PAIN 30 Tablet 3 08/08/2023 Active amLODIPine Besylate 10 MG Oral Tablet (Norvasc)Indication s:HTN, goal below 140/90 Take 1 Tablet by mouth in the morning. 90 Tablet 3 08/16/2023 Active Mounjaro 5 MG/0.5ML Subcutaneous Solution Pen-injector (Tirzepatide)Indica tions:Type 2 diabetes mellitus with hemoglobin A1c goal of less than 7.0% (HCC) Inject 5 mg under the skin once a week. 2 mL 2 01/10/2024 01/09/2025 Active Mounjaro 2.5 MG/0.5ML Subcutaneous Solution Pen-injector (Tirzepatide)Indica tions:Type 2 diabetes mellitus with hemoglobin A1c goal of less than 7.0% (HCC) Inject 2.5 mg under the skin once a week. 2 mL 2 09/25/2023 01/11/2024 Discontinued (Medication/ Dose Changed) documented as of this encounter (statuses as of 01/11/2024) Active Problems Problem Noted Date Diagnosed Date Type 2 diabetes mellitus wit h hemoglobin A1c goal of less than 7.0% 04/22/2022 Body mass index (BMI) of 45.0 to 49.9 in adult 0 01/11/2021 Overview: Per Obesity protocol - Essential hypertension with goal blood pressure less than 140/90 04/07/2017 Tobacco use disorder 04/07/2017 documented as of this encounter (statuses as of 01/11/2024) Resolved Problems Problem Noted Date Diagnosed Date [...] as of this encounter (statuses as of 01/11/2024) Immunizations Name Administration Dates Next Due DTWP - Dipth/Tet/Whole Cell Pertussis ,12/13/1979,02/22/1979,11/16,1978 Diptheria/Tetanus (Adult) 05/05/2006,01/27/1996 Hepatitis B Vaccine 02/14/1996,01/09/1996 MMR - Measles/Mumps/Rubella Vaccine 11/07/1979 OPV - Polio Virus Vaccine (Oral) 984,12/13/1979,1978,08/24 Pneumococcal Polysaccharide PPV23 (Pneumovax) 08/17/1984 TDAP (age 10 and older)(Boostrix) 11/20/2012 documented [...] as of this encounter Miscellaneous Notes * Addendum Note - Mel Thompson RPh - 01/11/2024 8:28 AM EDTAddended by: MEL THOMPSON on: 01/11/2024 08:28 AM Modules accepted: Orders * Telephone Encounter - Beth Call MD - 01/10/2024 9:09 AM EDTSigned Prescriptions: Disp Refills Mounjaro 5 MG/0.5ML Subcutaneous Solution *2 mL 2 Sig: Inject 5 mg under the skin once a week.Authorizing Provider: BETH CALL RRefused Prescriptions: Disp Refills Mounjaro 2.5 MG/0.5ML Subcutaneous Solutio* 2 Sig: INJECT 2.5MG SUBCUTANEOUSLY ONCE WEEKLYRefused By: MEL THOMPSONReason for Refusal: Dose needs clarificationReason for Refusal Comment: dose change pending * Telephone Encounter - Beth Call MD - 01/10/2024 9:09 AM EDTSigned Prescriptions: Disp Refills Mounjaro 5 MG/0.5ML Subcutaneous Solution *2 mL 2 Sig: Inject 5mg under the skin once a week.Authorizing Provider: BETH CALL RRefused Prescriptions: DispRefills Mounjaro 2.5 MG/0.5ML Subcutaneous Solutio* 2 Sig: INJECT 2.5MG SUBCUTANEOUSLY ONCE WEEKLYRefused By: MEL THOMPSONReason for Refusal: Dose needs clarificationReason for Refusal Comment: dose change pending * Telephone Encounter - Kimberlyn Albert PHARM Tech - 01/09/2024 4:10 PM EDT pt calling to check on status of 5 mg mounjaro. Caller can be reached at [phone] . Thank you, Kimberlyn Albert, [facility] Braille Duplicating Machine Operator II [facility]) 01/09/2024,4:10 PM * Telephone Encounter - Mel Thompson, [facility] - 01/09/2024 3:59 PM EDTPending Prescriptions: Disp Refills Mounjaro 5 MG/0.5ML Subcutaneous Solution *2 mL 2 Sig: Inject 5 mg under the skin once a week. Refused Prescriptions: Disp Refills Mounjaro 2.5 MG/0.5ML Subcutaneous Solutio* 2 Sig: INJECT 2.5MG SUBCUTANEOUSLY ONCE WEEKLY Refused By: MEL THOMPSON Reason for Refusal: Dose needs clarification Reason for Refusal Comment: dose change pending * Telephone Encounter - Mel Thompson RP - 01/09/2024 3:53 PM EDT Dose change recommended for Mounjaro. Script pending. Please approve if appropriate and route back to inform the patient. Current dose: 2.5mg Requested dose: 5mg Reason for request: The lower initial dose (2.5mg weekly) is intended to reduce GI symptoms; it does not provide effective glycemic control. Recommend tapering up to next appropriate dose. Pending Prescriptions: Disp Refills Mounjaro 5 MG/0.5ML Subcutaneous Solution*2 mL 2 Sig: Inject 5 mg under the skin once a week Mel Edwards, PharmD Clinical Pharmacist [facility] [phone] 01/09/2024 3:57 PM documented in this encounter Plan of Treatment Health Maintenance Due Date Last Done Comments DISCUSS TOBACCO CESSATION (REFER TO SMARTSET #6479) 1978 Pneumococcal Vaccine: Pediatrics (0 to 5 [...] this encounter Medical Devices Implanted Type Area Clerical Stock Inspector Device Identifier Shelf Expiration Date Model / Serial / Lot Tube Ventilation Petty [id number] - [id number] Implanted:Qty: 1 on 01/05/2023 by Sahil Almendarez MD at OR [facility] [place] Right: Ear [employer] 05/19/2032 [id number] / / Tube Ventilation Petty [id number] - [id number] Implanted:Qty: 1 on 01/05/2023 by Armando Mendenhall DO at [place] [facility] [place] Left: Ear [employer] 05/19/2032 [id number] / / documented as of this encounter Visit Diagnoses Diagnosis Type 2 diabetes mellitus with hemoglobin A1c goal of less than 7.0% (HCC) documented in this encounter Care Teams Ramp Agent Relationship Specialty Start Date End Date Beth Call MD [address], [place] [phone] PCP - General Family Medicine 12/01/20 documented as of this encounter
--- OUTSIDE RECORDS SUMMARY | 2024-06-08 02:12 | External Medical Summary | Summary of Care ---
Author Name Unknown Organization [facility] Address [address] [address] Phone [phone] Care Team Providers Care Assistant Plant Control Operator Name Role Phone Kike Juares MD Primary Care Provider [phone]- [phone] Encounter Details Date Type Department Care Team (Late st Contact Info) Description 2024 Orders Only PATIENT PORTAL DO NOT DELETE THIS DEPT USED BY DORA NOGUERA [id number] Allergies No known active allergiesdocumented as of this encounter (statuses as of 2024) Medications Rosuvastatin Calcium 5 MG Oral Tablet (Crestor)Indicat ions:Dyslipidemi a Take 1 Tablet by mouth in the morning. 90 Tablet 3 06/13/19 24 Active Lisinopril 40 MG Oral TabletIndication s:Essential hypertension with goal blood pressure less than 140/90 Take 1 Tablet by mouth in the morning. 90 Tablet 3 06/13/19 24 Active Metoprolol Succinate ER 25 MG Oral Tablet Extended Release 24 Hour (toPROL XL)Indications:E ssential hypertension with goal blood pressure less than 140/90 Take 1 Tablet by mouth in the morning. 90 Tablet 3 06/13/19 24 Active Trulicity 3 MG/0.5ML Subcutaneous Solution Pen-injector (Dulaglutide)Ind ications:Type 2 diabetes mellitus with hemoglobin A1c goal of less than 7.0% (HCC) Inject 3 mg under the skin once a week. 2 mL 3 06/13/19 24 Active Meloxicam 15 MG Oral Tablet (Mobic)Indicatio ns:Chronic bilateral low back pain with bilateral sciatica TAKE 1 TAB BY MOUTH ONCE PER DAY WHEN NEEDED FOR PAIN 30 Tablet 3 08/08/19 24 Active amLODIPine Besylate 10 MG Oral Tablet (Norvasc)Indicat ions:HTN, goal below 140/90 Take 1 Tablet by mouth in the morning. 90 Tablet 3 08/16/19 24 Active Mounjaro 5 MG/0.5ML Subcutaneous Solution Auto-injector (Tirzepatide)Ind ications:Type 2 diabetes mellitus with hemoglobin A1c goal of less than 7.0% ([facility]) INJECT 5 MG SUBCUTANEOUSLY WEEKLY 2 mL 04/16/20 24 Active documented as of this encounter (statuses as of 2024) Active Problems Problem Noted Date Diagnosed Date Type 2 diabetes mellitus wit h hemoglobin A1c goal of less than 7.0% 04/22/2022 Body mass index (BMI) of 45.0 to 49.9 in adult 0 01/11/2021 Overview: Per Obesity protocol - Essential hypertension with goal blood pressure less than 140/90 04/07/2017 Tobacco use disorder 04/07/2017 documented as of this encounter (statuses as of 2024) Resolved Problems Problem Noted Date Diagnosed Date [...] as of this encounter (statuses as of 2024) Immunizations Name Administration Dates Next Due Diptheria/Tetanus [...] 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 Not on file Not on file Not on file documented as of this encounter Plan of Treatment Health Maintenance Due Date Last Done Comments DISCUSS TOBACCO CESSATION (REFER TO SMARTSET #8650) 1980 Pneumococcal Vaccine: Pediatrics (0 to 5 [...] this encounter Medical Devices Implanted Type Area Filling And Stapling Machine Operator Device Identifier Shelf Expiration Date Model / Serial / Lot Tube Ventilation Petty [id number] - [id number] Implanted:Qty: 1 on 01/05/2023 by Sahil Almendarez [place] [facility] [place]: Ear LEPOW 05/19/2032 [id number] / / Tube Ventilation Petty [id number] - [id number] Implanted:Qty: 1 on 01/05/2023 by Armando Mendenhall DO [place] [facility] [place]: Ear LEPOW 05/19/2032 [id number] / / documented as of this encounter Care Teams Assistant Plant Control Operator Relationship Specialty Start Date End Date Kike Juares MD [address] [place] [address] PCP - General Family Medicine 12/01/20 documented as of this encounter
--- OUTSIDE RECORDS SUMMARY | 2024-06-08 02:12 | External Medical Summary | Summary of Care ---
Author Name Unknown Organization [facility] Address [address] [place] [address] Phone [phone] Care Team Providers Care Drywall Carrier Name Role Phone Beth Call MD Primary Care Provider [phone]- [phone] Reason for Referral * Medication Prior Authorization - Pending Review Specialty Diagnoses / Procedures Referred By Contac t Referred To Contact Diagnoses Type 2 diabetes mellitus with hemoglobin A1c goal of less than 7.0% ([facility]) Beth Call MD [address] [place] [address] Referral ID Status Reason Start Date Expiration Date V isits Requested Visits Authorized [id number] Pending Review [id number] Reason for Visit * Reason Comments eRx-Medication Refill Encounter Details Date Type Department Care Team (Late st Contact Info) Description 01/08/2024 Refill [facility] [address] [place] [id number] Beth Call MD [address], [place] [phone] Type 2 diabetes mellitus with hemoglobin A1c goal of less than 7.0% ([facility]) Allergies No known active allergiesdocumented as of this encounter (statuses as of 01/10/2024) Medications Medication Sig Dispensed Refills Start Date [...] week. 2 mL 2 09/25/2023 09/24/2024 Active Mounjaro 5 MG/0.5ML Subcutaneous Solution Pen-injector (Tirzepatide)Indicati ons:Type 2 diabetes mellitus with hemoglobin A1c goal of less than 7.0% (HCC) Inject 5 mg under the skin once a week. 2 mL 2 01/10/2024 01/09/2025 Active documented as of this encounter (statuses as of 01/10/2024) Active Problems Problem Noted Date Diagnosed Date Type 2 diabetes mellitus wit h hemoglobin A1c goal of less than 7.0% 04/22/2022 Body mass index (BMI) of 45.0 to 49.9 in adult 0 01/11/2021 Overview: Per Obesity protocol - Essential hypertension with goal blood pressure less than 140/90 04/07/2017 Tobacco use disorder 04/07/2017 documented as of this encounter (statuses as of 01/10/2024) Resolved Problems Problem Noted Date Diagnosed Date [...] as of this encounter (statuses as of 01/10/2024) Immunizations Name Administration Dates Next Due Diptheria/Tetanus [...] encounter Miscellaneous Notes * Telephone Encounter - Beth Call MD - 01/10/2024 9:09 AM EDTSigned Prescriptions: Disp Refills Mounjaro 5 MG/0.5ML Subcutaneous Solution *2 mL 2 Sig: Inject 5 mg under the skin once a week.Authorizing Provider: BETH CALL RRefused Prescriptions: Disp Refills Mounjaro 2.5 MG/0.5ML Subcutaneous Solutio* 2 Sig: INJECT 2.5MG SUBCUTANEOUSLY ONCE WEEKLYRefused By: MEL THOMPSON for Refusal: Dose needs clarificationReason for Refusal [...] INJECT 2.5MG SUBCUTANEOUSLY ONCE WEEKLYRefused By: MEL THOMPSON for Refusal: Dose needs clarificationReason for Refusal Comment: dose change pending * Telephone Encounter - Kimberlyn Albert PHARM Tech - 01/09/2024 4:10 PM EDT pt calling to check on status of 5 mg mounjaro. Caller can be reached at [phone] . Thank you, Kimberlyn Albert [facility] [employer] Impregnator II [facility] 01/09/2024,4:10 PM * Telephone Encounter - Mel Thompson [facility] - 01/09/2024 3:59 PM [...] pending * Telephone Encounter - Mel Thompson [facility] - 01/09/2024 3:53 PM EDT Dose change [...] mg under the skin once a week ThanksMel, PharmD Clinical Pharmacist [facility] [phone] 01/09/2024 3:57 PM documented in this encounter Plan of Treatment Health Maintenance Due Date Last Done Comments DISCUSS TOBACCO CESSATION (REFER TO SMARTSET #6830) 1980 Pneumococcal Vaccine: Pediatrics (0 to 5 [...] 01/27/1996, Additional history exists COVID-19 Vaccine ( season) 2023 Cologuard 2023 Colonoscopy 2023 Colorectal [...] this encounter Medical Devices Implanted Type Area Procedures Nurse Device Identifier Shelf Expiration Date Model / Serial / Lot Tube Ventilation Petty [id number] - [id number] Implanted:Qty: 1 on 01/05/2023 by Sahil Almendarez MD at [place] [facility] [place] Right: Ear Sensinode 05/19/2032 [id number] / / Tube Ventilation Petty [id number] - [id number] Implanted:Qty: 1 on 01/05/2023 by Armando Mendenhall DO at [place] [facility] [place] Left: Ear Sensinode 05/19/2032 [id number] / / documented as of this encounter Visit Diagnoses Diagnosis Type 2 diabetes mellitus with hemoglobin A1c goal of less than 7.0% (HCC) documented in this encounter Care Teams Drywall Carrier Relationship Specialty Start Date End Date Beth Call MD [address] [place] [address] PCP - General Family Medicine 12/01/20 documented as of this encounter
[2024-06-08] MEDS ORDERED: DEXTROSE 50% 50 ML SYRINGE IV PRN (02:13)
[2024-06-08] MEDS ORDERED: ACETAMINOPHEN 325 MG TAB PO PRN (02:13)
[2024-06-08] MEDS ORDERED: POLYETHYLENE (MIRALAX) 17 GM PACK PO PRN (02:13)
[2024-06-08] MEDS ORDERED: GLUCOSE 10 TAB/TUBE PO PRN (02:13)
[2024-06-08] MEDS ORDERED: GLUCOSE 40% GEL 15 GM TUBE PO PRN (02:13)
[2024-06-08] MEDS ORDERED: GLUCAGON FOR INJ 1 MG VIAL SQ PRN (02:13)
[2024-06-08] MEDS ORDERED: CARBOHYDRATES FOR HYPOGLYCEMIA PO PRN (02:13)
[2024-06-08] MEDS ORDERED: NITROGLYCERIN SL 0.4 MG/TAB TAB SL PRN (02:13)
--- NOTE | 2024-06-08 05:43 | Ultrasound Report ---
EXAM: US venous doppler LE BI CLINICAL HISTORY: B/L LE swelling, r/o DVT. TECHNIQUE: Ultrasound examination of bilateral lower extremity veins was performed in real-time and duplex. One or more of the following were performed- spectral analysis, resistive index, waveform analysis, and pulsed Doppler. Limited visualization of calf vessels bilaterally due to Calf edema. COMPARISON: None. 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 A possible partial occlusive thrombus is seen within the right proximal popliteal vein. Possible absent color flow in the right distal popliteal and peroneal veins could be from compressing edema. Otherwise, normal phasic, non-pulsatile, and spontaneous flow is noted in bilateral GSV, common femoral, superficial femoral, left popliteal, and posterior tibial and peroneal veins. Visualized veins of both lower extremities demonstrate normal compressibility. No sonographic evidence of acute deep vein thrombosis (DVT) is detected in the visualized veins of both lower extremities. Compression and Augmentation: All evaluated veins compress fully with applied transducer pressure. Augmentation of venous flow is noted with distal compression. Additional Findings: No evidence of intraluminal thrombus. IMPRESSION: 1. Limited visualization of calf vessels bilaterally due to Calf edema. 2. 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 3. A possible partial occlusive thrombus is seen within the right proximal popliteal vein. 4. Possible absent color flow in the right distal popliteal and peroneal veins could be from compressing edema. 5. Please correlate clinically. Repeating the Doppler examination after 1 to 2 weeks is advised. Disclaimer: DVT could be missed early in the disease when the clot burden is minimal. For patients with moderate and high pretest probability of DVT and negative ultrasound, the [employer] clinical guidelines recommend testing with a D-dimer assay or repeat ultrasound in 5-7 days. If symptoms worsen, the Society of radiologists in ultrasound recommends repeating ultrasound even earlier. [facility] was called at [phone] at 4:37 AM ICT BUSINESS ANALYST on 06/08/2023 and results were verbally communicated with Mian Sams. Electronically signed by Kaylee Watson 06-08-2024 05:43 AM
[2024-06-08] MEDS: OPTIRAY 320 125ml IV ONE (06:32)
[2024-06-08] MEDS: DOXYCYCLINE HYCLATE 100 MG in DEXTROSE 5% MINI-B 100 ML IV SCH (06:38)
[2024-06-08] MEDS: cefTRIAXone SODIUM 2,000 MG/50 ML BAG IV SCH (06:38)
--- NOTE | 2024-06-08 07:38 | CT Scan Report ---
EXAM: CT angio chest PE protocol CLINICAL HISTORY: sob, r/o pe. TECHNIQUE: Contiguous 3.[address] angiographic images of the chest were acquired with the administration of intravenous contrast. Coronal and sagittal reconstructions were obtained. 120 cc Optiray 320 was administered for post-contrast images. One of these 3D techniques was utilized: Maximum Intensity Pixel (MIP), 3D Reconstructed Images, Volume Rendered Images, Surface Shaded Rendering. One of the following dose reduction techniques were utilized for this exam: Automated exposure control, adjustment of the mA and/or kV according to patient size, and use of iterative reconstruction. COMPARISON: None. FINDINGS: Aorta: The thoracic aorta is normal in caliber. No evidence of aneurysm, dissection, or significant atherosclerotic changes. Aortic arch and descending thoracic aorta are unremarkable. Pulmonary Arteries: Pulmonary arteries are normal in size and opacification. No evidence of pulmonary embolism. No stenosis or filling defects. Superior Vena Cava (SVC) and Inferior Vena Cava (IVC): Normal opacification and caliber. No evidence of thrombus or obstruction. Mediastinum: No mediastinal mass or lymphadenopathy. Heart: Moderate cardiomegaly was noted. Moderate-large pericardial effusion Lungs: Lungs are clear with no evidence of consolidation, nodules, or masses. Fine atelectasis was noted in the left lung base. No pleural effusion or thickening. Bones: No fractures or lytic/sclerotic lesions of the visualized bony structures. Normal alignment and bone density. Soft Tissues: Normal appearance of the visualized soft tissues. No abnormal masses or fluid collections. IMPRESSION: 1. No evidence of pulmonary embolism. 2. Moderate cardiomegaly was noted. 3. Moderate-large pericardial effusion 4. Fine atelectasis was noted in the left lung base. Electronically signed by Kaylee Watson 06-08-2024 07:38 AM
[2024-06-08 08:04] LABS: Calcium 9.7 mg/dl (8.6-10.3); Magnesium 2.1 mg/dl (1.7-2.4); Potassium 4.1 mmol/L (3.5-5.1)
[2024-06-08 08:05] LABS: Troponin I High Sensitivity 17.9 pg/ml (0-20)
[2024-06-08 08:09] LABS: BUN Creatinine Ratio 19.8 (10-20); Creatinine Clr Calc Pharmacy 132.2 ml/min
[2024-06-08] MEDS: METOPROLOL SUCC 25MG EXT REL TAB PO SCH (08:10)
[2024-06-08] MEDS: HEPARIN SOD 5,000 UNIT/0.5 ML VIAL SQ SCH (08:11)
[2024-06-08] MEDS: lisinopril 40 MG TAB PO SCH (08:11)
[2024-06-08] MEDS: ROSUVASTATIN CALCIUM 5 MG TAB PO SCH (08:11)
[2024-06-08] MEDS: FUROSEMIDE 40 MG/4 ML VIAL IV SCH (08:12)
[2024-06-08 08:36] LABS: Estimated Average Glucose 120 mg/dl; Hemoglobin A1C 5.8 % (4.5-5.6)
[2024-06-08 08:38] LABS: Basophils # (auto) 0.07 K/uL (0.00-0.20); Basophils % (auto) 0.7 %; Eosinophils # (auto) 0.26 K/uL (0.00-0.50); Eosinophils % (auto) 2.5 %; Hematocrit (blood only) 56.7 % (42.0-52.0); Immature Granulocytes # (auto) 0.03 K/uL (0.01-0.20); Immature Granulocytes % (auto) 0.3 %; Lymphocytes # (auto) 3.16 K/uL (1.20-3.40); Lymphocytes % (auto) 30.3 %; Mean Corpuscular Hemoglobin 28.7 pg (25.0-34.0); Mean Corpuscular Hgb Conc 33.5 g/dL (32.0-36.0); Mean Corpuscular Volume 85.5 fL (80.0-100.0); Mean Platelet Volume 9.7 fL (9.4-12.4); Monocytes # (auto) 0.92 K/uL (0.11-0.59); Monocytes % (auto) 8.8 %; Neutrophils % (auto) 57.4 %; Platelet Count 246 K/uL (130-400); RDW Coefficient of Variation 14.6 % (11.5-14.5); RDW Standard Deviation 43.1 fL (36.4-46.3); Red Blood Count 6.63 M/uL (4.70-6.10); White Blood Count 10.44 K/ul (4.8-10.8)
--- NOTE | 2024-06-08 08:50 | Cardiology Consultation ---
Date of Consultation June 08, 2024 Assessment & Plan (1) Volume overload: (2) HTN (hypertension): (3) Pericardial effusion: Patient with leg swelling and volume overload, but I am uncertain I would characterize this as shortness of breath with clear lungs noted at present, and normal to hyperdynamic left ventricular systolic function. Agree with ongoing treatment to include furosemide 40 mg IV twice daily, lisinopril, metoprolol. Lower extremity venous duplex revealed possible partial occlusive thrombus within the proximal right popliteal vein. Study technically limited due to the presence of edema. May be prudent to reassess after edema improved with diuretic therapy. Agree with subcutaneous heparin for DVT prophylaxis If DVT felt not to be present. If antibiotics felt to be indicated, consider changing the doxycycline to oral medication to allow for less fluid input. I have added an ESR and CRP to his laboratory studies. I am not certain how informative they will be with regards to the pericardial effusion etiology if he has an acute bronchitis or pneumonia, it would be helpful to establish a baseline for future comparison. Continue outpatient rosuvastatin. Remain in hospital for ongoing diuretic therapy today. History of Present Illness Attending Physician: Genia Ovalle MD History of Present Illness Doug Roblero is a 44 year old male seen in cardiology consultation per the request of Dr Mcintosh for the evaluation of shortness of breath with concerns of congestive heart failure. Patient has a history of morbid obesity, most recent outpatient weight 344 pounds, BMI 44 kg/m, type 2 diabetes mellitus, hypertension,cigarette smoking and dyslipidemia. He presented to the emergency department last evening with complaint of pr ogressive lower extremity swelling and shortness of breath over the last few days. He states that he had been on the antihypertensive chlorthalidone but it was stopped approximately 2 years ago, not recently. At present he feels much improved having received 40 mg of IV furosemide just after midnight last night. He is also receiving IV Rocephin and doxycycline for concerns of pneumonia. During my assessment he was comfortable, sitting upright, having just finished his morning meal. Telemetry reveals sinus rhythm in the 80s. Allergies Allergy/AdvReac Type Severity Reaction Status Date / Time ondansetron Allergy Unknown pre-syncope Verified 10/09/13 07:31 Home Medications Medication Instructions Recorded Confirmed Type lisinopril 40 mg tablet 40 mg PO QAM 06/07/24 06/07/24 History meloxicam 15 mg tablet 15 mg PO DAILY PRN Pain 06/07/24 06/07/24 History metoprolol succinate 25 mg 25 mg PO QAM 06/07/24 06/07/24 History tablet,extended release 24 hr rosuvastatin 5 mg tablet 5 mg PO QAM 06/07/24 06/07/24 History testosterone 1 dose INJ DAILY 06/08/24 06/08/24 History Patient History Medical History Morbid obesity Surgical History History of appendectomy H/O lumbosacral spine surgery Social History Smoking Status: Current every day smoker Tobacco Type: Cigarettes Hx Alcohol Use: No Hx Substance Use: No Preferred Language: [place] Islander Communication Ability: Effective Plant Technical Specialist Required: No Beliefs That Will Affect Care: None Current Living Situation: Spouse Feels Safe at Home: Yes Review of Systems Review of Systems: All systems reviewed & are unremarkable except as noted in HPI & below Physical Exam Physical Exam: General: no acute distress and stated age Eyes: conjunctiva are pink and non-injected, sclera clear Neck: normal jugular venous pulse, no hepatojugular reflux Chest: normal shape and normal respiratory effort Lungs: clear to auscultation and percussion Cardiac Exam: - regular heart sounds, no murmurs, rubs, or gallops, no jugular venous distention Abdomen: abdomen soft, non-tender, no abnormal masses and no hepatosplenomegaly Musculoskeletal: no gait disturbance, no weakness Extremities: 2+ LE edema Neuro:awake, conversant, follows commands, no focal motor deficits Psych: appropriate affect and insight. Results & Data Vital Signs (Past 12 Hours) Vital Signs Temp Pulse Pulse Resp BP BP Pulse Ox 06/08/24 08:00 80 20 139/91 95 06/08/24 06:58 91 H 06/08/24 05:08 36.3 C L 94 H 16 158/99 H 94 06/08/24 05:08 06/08/24 01:55 85 24 144/95 H 94 06/08/24 00:07 93 06/08/24 00:01 100 H 06/08/24 00:00 97 H 22 158/96 H 93 06/07/24 20:44 36.0 C L 110 H 16 94 Pulse Ox O2 Del Method O2 Del Method 06/08/24 08:00 Room Air 06/08/24 06:58 06/08/24 05:08 Room Air 06/08/24 05:08 94 Room Air 06/08/24 01:55 06/08/24 00:07 Room Air 06/08/24 00:01 06/08/24 00:00 06/07/24 20:44 Room Air Laboratory Results Cardiac Enzymes 06/07/24 06/07/24 06/08/24 Range/Units 21:10 22:44 01:02 AST Cancelled TNP 15 Troponin I High Sens 21.7 H 22.6 H (0-20) pg/ml B-Natriuretic Peptide 60 (0-100) pg/ml 06/08/24 Range/Units 07:20 AST Troponin I High Sens 17.9 D (0-20) pg/ml B-Natriuretic Peptide (0-100) pg/ml Coagulation 06/07/24 06/07/24 Range/Units 21:10 22:44 PT 9.6 (9.0-12.0) Seconds APTT 25 (21-31) Seconds B-Natriuretic Peptide 60 (0-100) pg/ml CBC 06/07/24 06/08/24 Range/Units 21:10 07:20 WBC 11.98 H 10.44 (4.8-10.8) K/ul RBC 6.46 H 6.63 H (4.70-6.10) M/uL Hgb 19.0 H 19.0 H (14.0-18.0) g/dl Hct 55.3 H 56.7 H (42.0-52.0) % Plt Count 275 246 (130-400) K/uL Neut # (Auto) 6.59 H 6.00 (1.40-6.50) K/uL Lymph # (Auto) 4.07 H 3.16 (1.20-3.40) K/uL Webster # (Auto) 0.93 H 0.92 H (0.11-0.59) K/uL Eos # (Auto) 0.27 0.26 (0.00-0.50) K/uL Baso # (Auto) 0.08 0.07 (0.00-0.20) K/uL Comprehensive Metabolic Panel 06/07/24 06/07/24 06/08/24 Range/Units 21:10 22:44 01:02 Sodium Cancelled TNP 134 L Potassium Cancelled TNP 3.7 Chloride Cancelled 99 Carbon Dioxide Cancelled 27 BUN Cancelled 19 Creatinine Cancelled 1.24 Glucose Cancelled 139 H Calcium Cancelled 9.3 AST Cancelled TNP 15 ALT Cancelled 38 Alkaline Phosphatase Cancelled TNP Total Protein Cancelled 7.2 Albumin Cancelled TNP 4.0 06/08/24 Range/Units 07:20 Sodium 135 L Potassium 4.1 Chloride 100 Carbon Dioxide 27 BUN 20 Creatinine 1.01 Glucose 150 H Calcium 9.7 AST ALT Alkaline Phosphatase Total Protein Albumin Intake and Output 06/07/24 06/08/24 06/08/24 22:59 06:59 14:59 Other: Weight 142.7 kg 142.7 kg Weight Measurement Method Chair Scale Chair Scale Diagnostic Findings EKG performed 06/07/2024 at 2106 and interpret independently revealed sinus tachycardia 105 bpm, suggestion of biatrial enlargement by P wave morphology, age undetermined inferior infarct pattern, age undetermined anterior infarct pattern with poor R wave progression in the anterior precordial leads. Compared to the previous tracing performed as an outpatient dated 12/27/2022 age- indeterminate inferior infarct pattern is old. Poor R wave progression in the precordial leads is a new finding. Echocardiogram performed this morning and interpreted independently: Mild concentric left ventricular hypertrophy. No regional left ventricular wall motion abnormalities. The left ventricular systolic function is normal to hyperdynamic LVEF in the range of 65 to 70%. Mild aortic valve sclerosis without stenosis is present. Findings do not suggest pulmonary hypertension. There is a small circumferential pericardial effusion with focal fluid collection adjacent to the posterior and left lateral myocardial boudreaux without tamponade physiology. Compared to the previous echocardiogram performed in January,, the left lateral pericardial fluid collection is slightly more prominent
[2024-06-08 10:17] LABS: D Dimer 410 ug/L FEU (0-500)
[2024-06-08] MEDS: INSULIN ASPART PER UNIT CHARGE SC SCH (10:35)
--- NOTE | 2024-06-08 15:30 | Communication Note ---
Date of Service: June 08, 2024 The patient was seen and examined in emergency room. Admitted with progressive shortness of breath with leg swelling and noted to have mild pericardial ef fusion with volume overload and hypertension Has been seen by occupational health nurse supervisor and the patient is feeling much better. will continue current management. Will a full progress note tomorrow. Dr Nancy Ovalle
[2024-06-09 06:15] LABS: BUN Creatinine Ratio 22.2 (10-20); Creatinine Clr Calc Pharmacy 119.3 ml/min; Magnesium 2.3 mg/dl (1.7-2.4); Potassium 4.2 mmol/L (3.5-5.1)
[2024-06-09 06:28] LABS: Basophils # (auto) 0.05 K/uL (0.00-0.20); Basophils % (auto) 0.4 %; Eosinophils # (auto) 0.26 K/uL (0.00-0.50); Eosinophils % (auto) 2.3 %; Hematocrit (blood only) 57.3 % (42.0-52.0); Hemoglobin 18.9 g/dl (14.0-18.0); Immature Granulocytes # (auto) 0.04 K/uL (0.01-0.20); Immature Granulocytes % (auto) 0.4 %; Lymphocytes # (auto) 3.17 K/uL (1.20-3.40); Lymphocytes % (auto) 28.3 %; Mean Corpuscular Hemoglobin 28.9 pg (25.0-34.0); Mean Corpuscular Volume 87.7 fL (80.0-100.0); Monocytes # (auto) 1.04 K/uL (0.11-0.59); Monocytes % (auto) 9.3 %; Neutrophils # (auto) 6.65 K/uL (1.40-6.50); Neutrophils % (auto) 59.3 %; Platelet Count 258 K/uL (130-400); RDW Coefficient of Variation 14.8 % (11.5-14.5); RDW Standard Deviation 44.7 fL (36.4-46.3); Red Blood Count 6.53 M/uL (4.70-6.10); White Blood Count 11.21 K/ul (4.8-10.8)
--- NOTE | 2024-06-09 14:28 | Hospitalist Progress Note ---
Date of Service June 09, 2024 Assessment & Plan (1) Acute CHF: Plan: 44-year-old male with past med history significant for type 2 diabetes, hypertension, morbid obesity, obstructive sleep apnea currently not using CPAP as not tolerating it as per patient comes because of shortness of breath going on since last Monday and also swelling in the lower extremities since same time.Also complaining of 4/5 in severity pain in lower extremities. Also having cough. Denies any chest pain. No fevers. No nausea. No abdominal pain. Normal bowel and bladder movements. No headache. No dizziness. No blurred vision. No earache no runny nose or sore throat. Hemodynamics are okay. Patient says he started taking testosterone monthly injections couple of months ago.Patient states he stopped taking Mounjaro couple of weeks ago as his sugar levels were going down. Acute CHF-likely diastolic/volume overload Presents with shortness of breath and bilateral lower extremity edema likely complicated by volume overload The patient is morbidly obese with recent increase in weight and worsening of symptoms Received intravenous Lasix and is continuing since admission with adequate diuresis I's and O's Echo of the heart did not show any significant LV dysfunction and only showed grade 1 diastolic dysfunction Appreciate cardiology input and recommendation Doubt any pneumonia and will discontinue antibiotics Pericardial effusion Chest x-ray and CT scan did show cardiomegaly and suspected medical patient Coronary artery show minimal circumferential pericardial effusion without tamponade No further investigation or management B/l Lower extremity edema D-dimer is not elevated-[id number] Initial ultrasound was inconclusive for DVT Will rescan following decrease in the swelling Will rescan tomorrow Obstructive sleep apnea Not using CPAP as he could not tolerate it Nocturnal pulse oximetry showed significant desaturation and will require oxygen He was agreeable to wear nighttime oxygen through nasal cannula but does not want to use any CPAP and/or BiPAP Morbid obesity Counseling Type 2 diabetes Stopped Mounjaro couple of weeks ago as his sugars were going down as per his patient Will check HbA1c levels Insulin sliding scale Close follow-up Hypertension On lisinopril and metoprolol succinate Blood pressure seems to be stable and on the upper side at 148/85 no acute complaints Elevated hemoglobin Follow repeat labs Likely secondary to obstructive sleep apnea with nocturnal hypoxemia DVT prophylaxis Heparin subcu Disposition Telemetry Full code. (2) Volume overload: (3) HTN (hypertension): (4) Pericardial effusion: (5) Diabetes: (6) Sleep apnea: Admission and Anticipated Discharge Date Admission Date: June 08, 2024 Subjective 06/09/2024 The patient was seen and examined in the telemetry unit He has been feeling better with decreasing shortness of breath and improvement of his edema Denies any chest pain and/or palpitation He was noted to have significant general be saturation Review of Systems Review of Systems: All systems reviewed and are unremarkable except as noted below Physical Exam Physical Exam: Sitting at the edge of the bed with some distress due to shortness of breath Constitutional: well developed, well nourished, + ill appearing and + morbidly obese Eyes: PERRL, conjunctivae normal, anicteric sclerae ENMT: external ear and nose normal, oropharynx normal Neck: trachea midline, no thyromegaly Respiratory: + respiratory distress (Minimal respirat ory distress at rest) Auscultation: + diminished lung sounds and + crackles (Occasional crackles at the bases) Cardiovascular: Rate/Rhythm: regular rate, regular rhythm and + tachycardic Heart Sounds: normal S1 and normal S2; no murmur Extremities: + edema (1+ edema bilaterally and the initial edema has improved about) Gastrointestinal (Abdomen): Inspection/Auscultation: + abdomen distended and normal bowel sounds Percussion/Palpation: abdomen soft; abdomen nontender Musculoskeletal: No acute arthritis involving any of the joint Neurologic: Alert, awake and oriented x 3. No focal sensory or motor deficit appreciated Psychiatric: A+Ox3, euthymic affect Lymphatic: no cervical or axillary lymphadenopathy Results & Data Results & Data Vital Signs (Past 12 Hours) Vital Signs Temp Pulse Pulse Pulse Resp BP Pulse Ox 06/09/24 14:11 112 H 06/09/24 11:19 36.5 C 94 H 20 148/85 H 96 06/09/24 08:23 36.3 C L 86 18 139/93 94 06/09/24 07:30 06/09/24 07:28 81 06/09/24 05:00 06/09/24 03:50 101 H 06/09/24 02:30 36.6 C 97 H 18 131/82 93 Pulse Ox Pulse Ox O2 Del Method O2 Del Method O2 Del Method 06/09/24 14:11 06/09/24 11:19 Room Air 06/09/24 08:23 Room Air 06/09/24 07:30 Room Air 06/09/24 07:28 06/09/24 05:00 91 Room Air 06/09/24 03:50 91 Room Air 06/09/24 02:30 Room Air Laboratory Results Short CBC 06/09/24 Range/Units 05:44 WBC 11.21 H (4.8-10.8) K/ul Hgb 18.9 H (14.0-18.0) g/dl Hct 57.3 H (42.0-52.0) % Plt Count 258 (130-400) K/uL BMP 06/09/24 05:44 Sodium 134 L Potassium 4.2 Chloride 98 Carbon Dioxide 31 BUN 24 H Creatinine 1.08 Glucose 128 H Calcium 9.0 Medications Administered Current Inpatient Medications Acetaminophen (Acetaminophen 325 Mg Tab) 650 mg PO Q6H PRN PRN Reason: Pain or Fever Stop: 07/08/24 02:12 Dextrose (Dextrose 50% 50 Ml Syringe) 25 - 50 ml IV UD PRN; Protocol PRN Reason: Hypoglycemia Protocol Stop: 07/08/24 02:12 Furosemide (Furosemide 40 Mg/4 Ml Vial) 40 mg IV [id number] [facility] Stop: 07/08/24 08:59 Last Admin: 06/09/24 09:50 Dose: 40 mg Glucagon (Glucagon For Inj 1 Mg Vial) 1 mg SQ UD PRN; Protocol PRN Reason: Hypoglycemia Protocol Stop: 07/08/24 02:12 Glucose (Glucose 40% Gel 15 Gm Tube) 15 - 30 gm PO UD PRN; Protocol PRN Reason: Hypoglycemia Protocol Stop: 07/08/24 02:12 Glucose (Glucose 10 Tab/Tube) 4 - 8 tab PO UD PRN; Protocol PRN Reason: Hypoglycemia Protocol Stop: 07/08/24 02:12 Heparin Sodium (Porcine) (Heparin Sod 5,000 Unit/0.5 Ml Vial) 7,500 units SQ Q12 [facility] Stop: 07/08/24 08:59 Last Admin: 06/09/24 10:03 Dose: 7,500 units Ceftriaxone Sodium (Rocephin) 2,000 mg in 50 mls @ 100 mls/hr IV Q24H [facility] Stop: 06/13/24 05:59 Last Infusion: 06/09/24 05:50 Dose: Infused Doxycycline Hyclate 100 mg/ (Dextrose) 100 mls @ 50 mls/hr IV Q12H [facility] Stop: 06/13/24 05:59 Last Infusion: 06/09/24 08:10 Dose: Infused Insulin Aspart (Insulin Aspart Per Unit Charge) 0 units SC ACHS [facility] Stop: 07/08/24 07:29 Last Admin: 06/09/24 12:48 Dose: 3 units Lisinopril (Lisinopril 40 Mg Tab) 40 mg PO [facility] Stop: 07/08/24 08:59 Last Admin: 06/09/24 09:50 Dose: 40 mg Metoprolol Succinate (Metoprolol Succ 25mg Ext Rel Tab) 25 mg PO [facility] Stop: 07/08/24 08:59 Last Admin: 06/09/24 09:49 Dose: 25 mg Miscellaneous (Carbohydrates For Hypoglycemia ) 15 - 30 gm PO UD PRN PRN Reason: Hypoglycemia Protocol Stop: 07/08/24 02:12 Nitroglycerin (Nitroglycerin Sl 0.4 Mg/Tab Tab) 0.4 mg SL Q5M PRN PRN Reason: Chest Pain Stop: 07/08/24 02:12 Polyethylene Glycol (Polyethylene (Miralax) 17 Gm Pack) 17 gm PO DAILY PRN PRN Reason: Constipation Stop: 07/08/24 02:12 Rosuvastatin Calcium (Rosuvastatin Calcium 5 Mg Tab) 5 mg PO [facility] Stop: 07/08/24 08:59 Last Admin: 06/09/24 09:49 Dose: 5 mg
--- NOTE | 2024-06-09 15:20 | Cardiology Progress Note ---
Date of Service June 09, 2024 Assessment & Plan (1) Volume overload: (2) HTN (hypertension): (3) Pericardial effusion: Plan: Patient with leg swelling and volume overload, but I am uncertain I would characterize this as shortness of breath with clear lungs noted at present, and normal to hyperdynamic left ventricular systolic function. Patient notably has 3 canisters of iced tea in his room as well as a 20 ounce coffee. He states he drinks at least 1 container of iced tea per day and drinks "a lot of coffee ". Based on his nocturnal pulse oximetry he likely has underlying obstructive sleep apnea for which outpatient evaluation is recommended. Agree with ongoing treatment to include furosemide 40 mg IV twice daily, lisinopril, metoprolol. Lower extremity venous duplex revealed possible partial occlusive thrombus within the proximal right popliteal vein. Study technically limited due to the presence of edema. May be prudent to reassess after edema improved with diuretic therapy. Agree with subcutaneous heparin for DVT prophylaxis If DVT felt not to be present. If antibiotics felt to be indicated, consider changing the doxycycline to oral medication to allow for less fluid input. I have added an ESR and CRP to his laboratory studies. ESR was only minimally elevated at 16 mm/h (normal 0-15) and a C-reactive protein was only minimally elevated at 0.88 mg/dL. I therefore do not believe the pericardial effusion is inflammatory and as noted, appears to be a chronic finding. Continue outpatient rosuvastatin. Remain in hospital for ongoing diuretic therapy today. Admission and Anticipated Discharge Date Admission Date: June 08, 2024 Subjective Patient seen in cardiology follow-up. Feels much improved from both the breathing and the lower extremity edema standpoint. Urinated over 4 L in the previous 24 telemetry reveals sinus rhythm in the 80s without arrhythmia hours. Physical Exam Physical Exam: General: no acute distress and stated age Eyes: conjunctiva are pink and non-injected, sclera clear Neck: normal jugular venous pulse, no hepatojugular reflux Chest: normal shape and normal respiratory effort Lungs: clear to auscultation and percussion Cardiac Exam: - regular heart sounds, no murmurs, rubs, or gallops, no jugular venous distention Abdomen: abdomen soft, non-tender, no abnormal masses and no hepatosplenomegaly Musculoskeletal: no gait disturbance, no weakness Extremities: 2+ LE edema Neuro:awake, conversant, follows commands, no focal motor deficits Psych: appropriate affect and insight. Results & Data Vital Signs (Past 12 Hours) Vital Signs Temp Pulse Pulse Pulse Resp BP Pulse Ox 06/09/24 14:11 112 H 06/09/24 11:19 36.5 C 94 H 20 148/85 H 96 06/09/24 08:23 36.3 C L 86 18 139/93 94 06/09/24 07:30 06/09/24 07:28 81 06/09/24 05:00 06/09/24 03:50 101 H Pulse Ox Pulse Ox O2 Del Method O2 Del Method O2 Del Method 06/09/24 14:11 06/09/24 11:19 Room Air 06/09/24 08:23 Room Air 06/09/24 07:30 Room Air 06/09/24 07:28 06/09/24 05:00 91 Room Air 06/09/24 03:50 91 Room Air
[2024-06-09] MEDS: SPIRONOLACTONE 12.5 MG TAB PO ONE (16:10)
--- NOTE | 2024-06-10 09:00 | Electrocardiogram Report ---
Test Reason : Blood Pressure : */* mmHG Vent. Rate : 105 BPM Atrial Rate : 105 BPM P-R Int : 158 ms QRS Dur : 84 ms QT Int : 328 ms P-R-T Axes : 51 -36 61 degrees QTcB Int : 433 ms Sinus tachycardia Biatrial enlargement Left axis deviation Possible Inferior infarct , age undetermined Anterior infarct , age undetermined Abnormal ECG When compared with ECG of 08-Oct-2013 10:48, Inferior infarct and anterior infarct are now present Confirmed by Emeterio Matias ([id number]) on 06/10/2024 9:00:25 AM Referred By: REFERRED SELF Confirmed By: Emeterio Matias
[2024-06-10] MEDS: SPIRONOLACTONE 25 MG TAB PO SCH (09:32)
--- NOTE | 2024-06-10 09:59 | Ultrasound Report ---
US venous doppler LE BI CLINICAL HISTORY: R/O DVT TECHNIQUE: Bilateral lower extremity real-time compression venous ultrasound with Color Doppler imagi ng. Utilizing real-time ultrasonic imaging multiple real time high-resolution ultrasonic images with compression and noncompression maneuvers of the deep venous system in addition to color doppler imagi ng were performed from the common femoral vein through the proximal calf veins. COMPARISON: Comparison is made to lower extremity Doppler ultrasound 06/08/2024 FINDINGS/IMPRESSION: No deep venous thrombus, there is normal compressibility of the deep venous system from the common fe moral vein through the proximal calf veins. 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 ACT 112: Negative or not required by law. Electronically signed by: Julio Aleman M.D. 06/10/2024 9:57 AM
[2024-06-10 10:33] LABS: BUN Creatinine Ratio 22.3 (10-20); Calcium 10.1 mg/dl (8.6-10.3); Creatinine Clr Calc Pharmacy 113.9 ml/min; Potassium 4.1 mmol/L (3.5-5.1)
--- NOTE | 2024-06-10 11:58 | Cardiology Progress Note ---
Date of Service June 10, 2024 Assessment & Plan (1) Volume overload: (2) HTN (hypertension): (3) Pericardial effusion: Plan: 06/09/[address] Snyder Patient with leg swelling and volume overload, but I am uncertain I would characterize this as shortness of breath with clear lungs noted at present, and normal to hyperdynamic left ventricular systolic function. Patient notably has 3 canisters of iced tea in his room as well as a 20 ounce coffee. He states he drinks at least 1 container of iced tea per day and drinks "a lot of coffee ". Based on his nocturnal pulse oximetry he likely has underlying obstructive sleep apnea for which outpatient evaluation is recommended. Agree with ongoing treatment to include furosemide 40 mg IV twice daily, lisinopril, metoprolol. Lower extremity venous duplex revealed possible partial occlusive thrombus within the proximal right popliteal vein. Study technically limited due to the presence of edema. May be prudent to reassess after edema improved with diuretic therapy. Agree with subcutaneous heparin for DVT prophylaxis If DVT felt not to be present. If antibiotics felt to be indicated, consider changing the doxycycline to oral medication to allow for less fluid input. I have added an ESR and CRP to his laboratory studies. ESR was only minimally elevated at 16 mm/h (normal 0-15) and a C-reactive protein was only minimally elevated at 0.88 mg/dL. I therefore do not believe the pericardial effusion is inflammatory and as noted, appears to be a chronic finding. Continue outpatient rosuvastatin. Remain in hospital for ongoing diuretic therapy today. 06/10/24: Patient with ongoing diuresis since admission. Negative 5.8 L since admission Weight down possible 9 kg since admission if accurate Repeat venous duplex negative for DVT. Edema improving. Approaching euvolemic state. Received furosemide 40 mg IV this morning. anticipate transitioning to oral furosemide 40 mg daily with spironolactone in the next 24 hours. Continue metoprolol, lisinopril, rosuvastatin. Patient with nocturnal hypoxia, LUCIANO. Intolerant to CPAP? 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 Sleep med appt as outpatient. Case discussed with Dr. Rizo I spent a total of 40 minutes on the date of service in preparation, delivery, and documentation of the care provided to this patient, excluding any time spent in the performance of separately billed services. Kimberly Nava PA-C Department of Cardiology, [facility] This chart was completed in part utilizing Speech Voice Recognition Software. Grammatical errors, random word insertions, pronoun errors, and incomplete sentences are an occasional consequence of this system due to software limitations, ambient noise, and hardware issues. Any formal questions or concerns about the content, text, or information contained within the body of this dictation should be directly addressed to the provider for clarification. Admission and Anticipated Discharge Date Admission Date: June 08, 2024 Supervising Physician Co-Signing Physician Notes I have personally performed a history and physical examination on the patient. I have reviewed the advance practitioner's documentation, and I agree with, and take responsibility for the plan of care. 44-year-old male with volume overload, Heart failure with preserved ejection fraction, clinically improved with IV diuresis. Echocardiogram on admission demonstrating borderline hyperdynamic LV systolic function and small circumferential pericardial effusion without chest discomfort. ECG on admission does not suggest pericarditis. Minimally elevated ESR and CRP. Requesting discharge as soon as possible. Repeat lower extremity venous duplex negative for DVT. Admits to excessive fluid intake including soda, iced tea, and coffee daily. * Add Jardiance 10mg daily due to heart failure with preserved ejection fraction and insulin resistance. * Continue IV furosemide today with possible transition to oral furosemide and spironolactone in the next 24 hours. * Advised patient to reduce daily fluid intake. * Restrict sodium intake to less than 1.5 g daily. * Continue metoprolol, lisinopril, and rosuvastatin as ordered. * Outpatient sleep medicine eval. LUCIANO will need to be addressed with CDL. I spent a total of 40 minutes on the date of service in preparation, delivery, and documentation of the care provided to this patient, excluding any time spent in the performance of separately billed services. Carlos Rizo DO, [facility] Subjective Patient resting in bed comfortably. Reports great improvement in his dyspnea and LE edema with ongoing diuresis. No recurrent calf pain. Repeat venous duplex this morning was negative for DVT. No chest pain. tolerating medications. Weight trending down Review of Systems Review of Systems: All systems reviewed & are unremarkable except as noted in HPI & below Physical Exam Physical Exam: General: no acute distress and stated age Eyes: conjunctiva are pink and non-injected, sclera clear Neck: normal jugular venous pulse, no hepatojugular reflux Chest: normal shape and normal respiratory effort Lungs: clear to auscultation and percussion Cardiac Exam: - regular heart sounds, no murmurs, rubs, or gallops, no jugular venous distention Abdomen: abdomen soft, non-tender, no abnormal masses and no hepatosplenomegaly Musculoskeletal: no gait disturbance, no weakness Extremities: 1+ LE edema Neuro:awake, conversant, follows commands, no focal motor deficits Psych: appropriate affect and insight. Results & Data Vital Signs (Past 12 Hours) Vital Signs Temp Pulse Pulse Resp BP Pulse Ox O2 Del Method 06/10/24 07:42 73 06/10/24 07:17 36.5 C 106 H 18 139/95 95 Room Air 06/10/24 03:28 36.6 C 100 H 19 125/83 95 Room Air Laboratory Results Comprehensive Metabolic Panel 06/10/24 Range/Units 10:01 Sodium 137 (136-145) mmol/L Potassium 4.1 (3.5-5.1) mmol/L Chloride 96 L (98-107) mmol/L Carbon Dioxide 36 H (21-32) mmol/L BUN 25 H (6-23) mg/dl Creatinine 1.12 (0.6-1.4) mg/dl Glucose 119 H (70-99(Fasting)) mg/dl Calcium 10.1 (8.6-10.3) mg/dl Intake and Output 06/09/24 06/10/24 06/10/24 22:59 06:59 14:59 Output Total 1300 / 2425 350 / 2425 Balance -1300 / -2085 -350 / -2085 Output: Urine 1300 / 2425 350 / 2425 Other: Weight 131.4 kg Weight Measurement Method Built in [facility] Diagnostic Findings Telemetry reviewed: NSR with occ PAC; no arrhythmias Venous Doppler Study 06/10/24 07:12 US venous doppler LE BI CLINICAL HISTORY: R/O DVT TECHNIQUE: Bilateral lower extremity real-time compression venous ultrasound with Color Doppler imaging. Utilizing real-time ultrasonic imaging multiple real time high-resolution ultrasonic images with compression and noncompression maneuvers of the deep venous system in addition to color doppler imaging were performed from the common femoral vein through the proximal calf veins. COMPARISON: Comparison is made to lower extremity Doppler ultrasound 06/08/2024 FINDINGS/IMPRESSION: No deep venous thrombus, there is normal compressibility of the deep venous system from the common femoral vein through the proximal calf veins. 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 ACT 112: Negative or not required by law. Electronically signed by: Julio Aleman M.D. 06/10/2024 9:57 AM Medications Administered Current Inpatient Medications Acetaminophen (Acetaminophen 325 Mg Tab) 650 mg PO Q6H PRN PRN Reason: Pain or Fever Stop: 07/08/24 02:12 Dextrose (Dextrose 50% 50 Ml Syringe) 25 - 50 ml IV UD PRN; Protocol PRN Reason: Hypoglycemia Protocol Stop: 07/08/24 02:12 Furosemide (Furosemide 40 Mg/4 Ml Vial) 40 mg IV [id number] [facility] Stop: 07/08/24 08:59 Last Admin: 06/10/24 09:42 Dose: 40 mg Glucagon (Glucagon For Inj 1 Mg Vial) 1 mg SQ UD PRN; Protocol PRN Reason: Hypoglycemia Protocol Stop: 07/08/24 02:12 Glucose (Glucose 40% Gel 15 Gm Tube) 15 - 30 gm PO UD PRN; Protocol PRN Reason: Hypoglycemia Protocol Stop: 07/08/24 02:12 Glucose (Glucose 10 Tab/Tube) 4 - 8 tab PO UD PRN; Protocol PRN Reason: Hypoglycemia Protocol Stop: 07/08/24 02:12 Heparin Sodium (Porcine) (Heparin Sod 5,000 Unit/0.5 Ml Vial) 7,500 units SQ Q12 [facility] Stop: 07/08/24 08:59 Last Admin: 06/10/24 09:40 Dose: 7,500 units Insulin Aspart (Insulin Aspart Per Unit Charge) 0 units SC ACHS [facility] Stop: 07/08/24 07:29 Last Admin: 06/10/24 09:33 Dose: 8 units Lisinopril (Lisinopril 40 Mg Tab) 40 mg PO QAM [facility] Stop: 07/08/24 08:59 Last Admin: 06/10/24 09:32 Dose: 40 mg Metoprolol Succinate (Metoprolol Succ 25mg Ext Rel Tab) 25 mg PO QAM [facility] Stop: 07/08/24 08:59 Last Admin: 06/10/24 09:32 Dose: 25 mg Miscellaneous (Carbohydrates For Hypoglycemia ) 15 - 30 gm PO UD PRN PRN Reason: Hypoglycemia Protocol Stop: 07/08/24 02:12 Nitroglycerin (Nitroglycerin Sl 0.4 Mg/Tab Tab) 0.4 mg SL Q5M PRN PRN Reason: Chest Pain Stop: 07/08/24 02:12 Polyethylene Glycol (Polyethylene (Miralax) 17 Gm Pack) 17 gm PO DAILY PRN PRN Reason: Constipation Stop: 07/08/24 02:12 Rosuvastatin Calcium (Rosuvastatin Calcium 5 Mg Tab) 5 mg PO [facility] Stop: 07/08/24 08:59 Last Admin: 06/10/24 09:32 Dose: 5 mg Spironolactone (Spiron[facility]act[facility] 25 Mg Tab) [facility] Stop: 07/10/24 08:59 Last Admin: 06/10/24 09:32 Dose: 25 mg
--- NOTE | 2024-06-10 14:33 | Hospitalist Progress Note ---
Date of Service June 10, 2024 Assessment & Plan (1) Acute CHF: Plan: 44-year-old male with past med history significant for type 2 diabetes, hypertension, morbid obesity, obstructive sleep apnea currently not using CPAP as not tolerating it as per patient comes because of shortness of breath going on since last Monday and also swelling in the lower extremities since same time.Also complaining of 4/5 in severity pain in lower extremities. Also having cough. Denies any chest pain. No fevers. No nausea. No abdominal pain. Normal bowel and bladder movements. No headache. No dizziness. No blurred vision. No earache no runny nose or sore throat. Hemodynamics are okay. Patient says he started taking testosterone monthly injections couple of months ago.Patient states he stopped taking Mounjaro couple of weeks ago as his sugar levels were going down. Acute CHF-likely diastolic/volume overload Presents with shortness of breath and bilateral lower extremity edema likely complicated by volume overload The patient is morbidly obese with recent increase in weight and worsening of symptoms Received intravenous Lasix and is continuing since admission with adequate diuresis I's and O's Echo of the heart did not show any significant LV dysfunction and only showed grade 1 diastolic dysfunction Appreciate cardiology input and recommendation Doubt any pneumonia and will discontinue antibiotics Has been feeling much better with enough diuresis Will continue current doses of Lasix and spironolactone Will get PT and OT evaluation prior to discharge Pericardial effusion Chest x-ray and CT scan did show cardiomegaly and suspected medical patient Coronary artery show minimal circumferential pericardial effusion without tamponade No further investigation or management B/l Lower extremity edema D-dimer is not elevated-[id number] Initial ultrasound was inconclusive for DVT Will rescan following decrease in the swelling Will rescan tomorrow- negative for any deep venous thrombosis Bilateral leg edema has improved a lot Obstructive sleep apnea Not using CPAP as he could not tolerate it Nocturnal pulse oximetry showed significant desaturation and will require oxygen He was agreeable to wear nighttime oxygen through nasal cannula but does not want to use any CPAP and/or BiPAP Morbid obesity Counseling Type 2 diabetes Stopped Mounjaro couple of weeks ago as his sugars were going down as per his patient Will check HbA1c levels Insulin sliding scale Close follow-up Hypertension On lisinopril and metoprolol succinate Blood pressure seems to be stable and on the upper side at 148/85 no acute complaints Elevated hemoglobin Follow repeat labs Likely secondary to obstructive sleep apnea with nocturnal hypoxemia DVT prophylaxis Heparin subcu Disposition Telemetry Full code. (2) Volume overload: (3) HTN (hypertension): (4) Pericardial effusion: (5) Diabetes: (6) Sleep apnea: Admission and Anticipated Discharge Date Admission Date: June 08, 2024 Subjective 06/09/2024 The patient was seen and examined in the telemetry unit He has been feeling better with decreasing shortness of breath and improvement of his edema Denies any chest pain and/or palpitation He was noted to have significant general be saturation 06/10/2024 The patient was seen and examined in telemetry unit He has been feeling much better and denies any symptoms at rest He will have PT and OT evaluation prior to discharge likely tomorrow Review of Systems Review of Systems: All systems reviewed and are unremarkable except as noted below Physical Exam Physical Exam: Sitting at the edge of the bed with some distress due to shortness of breath Constitutional: well developed, well nourished, + ill appearing and + morbidly obese Eyes: PERRL, conjunctivae normal, anicteric sclerae ENMT: external ear and nose normal, oropharynx normal Neck: trachea midline, no thyromegaly Respiratory: + respiratory distress (Minimal respirat ory distress at rest) Auscultation: + diminished lung sounds and + crackles (Occasional crackles at the bases) Cardiovascular: Rate/Rhythm: regular rate, regular rhythm and + tachycardic Heart Sounds: normal S1 and normal S2; no murmur Extremities: + edema (1+ edema bilaterally and the initial edema has improved about) Gastrointestinal (Abdomen): Inspection/Auscultation: + abdomen distended and normal bowel sounds Percussion/Palpation: abdomen soft; abdomen nontender Musculoskeletal: No acute arthritis involving any of the joints Neurologic: normal touch/pain/proprioception and moves all extremities; no focal motor deficits Psychiatric: A+Ox3, euthymic affect Lymphatic: no cervical or axillary lymphadenopathy Results & Data Results & Data Vital Signs (Past 12 Hours) Vital Signs Temp Pulse Pulse Resp BP Pulse Ox O2 Del Method 06/10/24 11:55 36.6 C 89 18 136/85 93 Room Air 06/10/24 07:42 73 06/10/24 07:17 36.5 C 106 H 18 139/95 95 Room Air 06/10/24 03:28 36.6 C 100 H 19 125/83 95 Room Air Laboratory Results [facility] 06/10/24 10:01 Sodium 137 Potassium 4.1 Chloride 96 L Carbon Dioxide 36 H BUN 25 H Creatinine 1.12 Glucose 119 H Calcium 10.1 Medications Administered Current Inpatient Medications Acetaminophen (Acetaminophen 325 Mg Tab) 650 mg PO Q6H PRN PRN Reason: Pain or Fever Stop: 07/08/24 02:12 Dextrose (Dextrose 50% 50 Ml Syringe) 25 - 50 ml IV UD PRN; Protocol PRN Reason: Hypoglycemia Protocol Stop: 07/08/24 02:12 Furosemide (Furosemide 40 Mg/4 Ml Vial) 40 mg IV [id number] [facility] Stop: 07/08/24 08:59 Last Admin: 06/10/24 09:42 Dose: 40 mg Glucagon (Glucagon For Inj 1 Mg Vial) 1 mg SQ UD PRN; Protocol PRN Reason: Hypoglycemia Protocol Stop: 07/08/24 02:12 Glucose (Glucose 40% Gel 15 Gm Tube) 15 - 30 gm PO UD PRN; Protocol PRN Reason: Hypoglycemia Protocol Stop: 07/08/24 02:12 Glucose (Glucose 10 Tab/Tube) 4 - 8 tab PO UD PRN; Protocol PRN Reason: Hypoglycemia Protocol Stop: 07/08/24 02:12 Heparin Sodium (Porcine) (Heparin Sod 5,000 Unit/0.5 Ml Vial) 7,500 units SQ Q12 [facility] Stop: 07/08/24 08:59 Last Admin: 06/10/24 09:40 Dose: 7,500 units Insulin Aspart (Insulin Aspart Per Unit Charge) 0 units SC ACHS [facility] Stop: 07/08/24 07:29 Last Admin: 06/10/24 12:14 Dose: 3 units Lisinopril (Lisinopril 40 Mg Tab) 40 mg PO QAM [facility] Stop: 07/08/24 08:59 Last Admin: 06/10/24 09:32 Dose: 40 mg Metoprolol Succinate (Metoprolol Succ 25mg Ext Rel Tab) 25 mg PO QAM [facility] Stop: 07/08/24 08:59 Last Admin: 06/10/24 09:32 Dose: 25 mg Miscellaneous (Carbohydrates For Hypoglycemia ) 15 - 30 gm PO UD PRN PRN Reason: Hypoglycemia Protocol Stop: 07/08/24 02:12 Nitroglycerin (Nitroglycerin Sl 0.4 Mg/Tab Tab) 0.4 mg SL Q5M PRN PRN Reason: Chest Pain Stop: 07/08/24 02:12 Polyethylene Glycol (Polyethylene (Miralax) 17 Gm Pack) 17 gm PO DAILY PRN PRN Reason: Constipation Stop: 07/08/24 02:12 Rosuvastatin Calcium (Rosuvastatin Calcium 5 Mg Tab) [address] [facility] Stop: 07/08/24 08:59 Last Admin: 06/10/24 09:32 Dose: 5 mg Spironolactone (Spironolactone 25 Mg Tab) [address] [facility] Stop: 07/10/24 08:59 Last Admin: 06/10/24 09:32 Dose: 25 mg 40 mg daily
[2024-06-10] MEDS: EMPAGLIFLOZIN 10 MG TAB PO SCH (16:43)
[2024-06-11 06:14] LABS: Calcium 9.3 mg/dl (8.6-10.3); Magnesium 2.4 mg/dl (1.7-2.4); Potassium 4.3 mmol/L (3.5-5.1)
[2024-06-11 06:20] LABS: BUN Creatinine Ratio 21.5 (10-20); Creatinine Clr Calc Pharmacy 95.5 ml/min
--- NOTE | 2024-06-11 13:07 | Cardiology Progress Note ---
Date of Service June 11, 2024 Assessment & Plan (1) Volume overload: (2) HTN (hypertension): (3) Pericardial effusion: Plan 06/09/[address] Snyder Patient with leg swelling and volume overload, but I am uncertain I would characterize this as shortness of breath with clear lungs noted at present, and normal to hyperdynamic left ventricular systolic function. Patient notably has 3 canisters of iced tea in his room as well as a 20 ounce coffee. He states he drinks at least 1 container of iced tea per day and drinks "a lot of coffee ". Based on his nocturnal pulse oximetry he likely has underlying obstructive sleep apnea for which outpatient evaluation is recommended. Agree with ongoing treatment to include furosemide 40 mg IV twice daily, lisinopril, metoprolol. Lower extremity venous duplex revealed possible partial occlusive thrombus within the proximal right popliteal vein. Study technically limited due to the presence of edema. May be prudent to reassess after edema improved with diuretic therapy. Agree with subcutaneous heparin for DVT prophylaxis If DVT felt not to be present. If antibiotics felt to be indicated, consider changing the doxycycline to oral medication to allow for less fluid input. I have added an ESR and CRP to his laboratory studies. ESR was only minimally elevated at 16 mm/h (normal 0-15) and a C-reactive protein was only minimally elevated at 0.88 mg/dL. I therefore do not believe the pericardial effusion is inflammatory and as noted, appears to be a chronic finding. Continue outpatient rosuvastatin. Remain in hospital for ongoing diuretic therapy today. 06/10/24: Patient with ongoing diuresis since admission. Negative 5.8 L since admission Weight down possible 9 kg since admission if accurate Repeat venous duplex negative for DVT. Edema improving. Approaching euvolemic state. Received furosemide 40 mg IV this morning. anticipate transitioning to oral furosemide 40 mg daily with spironolactone in the next 24 hours. Continue metoprolol, lisinopril, rosuvastatin. Patient with nocturnal hypoxia, LUCIANO. Intolerant to CPAP? 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 Sleep med appt as outpatient. 06/11/24: patient doing well. Appears euvolemic. Stop IV lasix and transition to oral lasix 40 mg daily tomorrow. Continue spironolactone 25 mg daily Jardiance added yesterday and continue on discharge. Continue metoprolol and lisinopril. Fluid restriction, daily weight, sodium restrictions discussed with patient. Follow up with sleep med and treatment of LUCIANO recommended. Outpatient cardiology follow up recommended in 2-4 weeks. Consider outpatient ischemic work up given comorbidities and dyspnea Follow up BMP recommended in 3-5 days with med adjustments. Stable for discharge today or tomorrow. Will sign off. Please contact director of transportation cardiology provider with additional questions or concerns Case discussed with Dr. Rizo I spent a total of 30 minutes on the date of service in preparation, delivery, and documentation of the care provided to this patient, excluding any time spent in the performance of separately billed services. Kimberly Nava PA-C Department of Cardiology, [facility] This chart was completed in part utilizing Speech Voice Recognition Software. Grammatical errors, random word insertions, pronoun errors, and incomplete sentences are an occasional consequence of this system due to software limitations, ambient noise, and hardware issues. Any formal questions or concerns about the content, text, or information contained within the body of this dictation should be directly addressed to the provider for clarification. Admission and Anticipated Discharge Date Admission Date: June 08, 2024 Supervising Physician Co-Signing Physician Notes I have personally performed a history and physical examination on the patient. I have reviewed the advance practitioner's documentation, and I agree with, and take responsibility for the plan of care. 44-year-old male with volume overload, heart failure with preserved ejection fraction. Echocardiogram on admission demonstrating borderline hyperdynamic LV systolic function and small circumferential pericardial effusion without chest discomfort. ECG on admission does not suggest pericarditis. Minimally elevated ESR and CRP. Feeling better today. Edema has nearly resolved. Reports episode of lightheadedness early this a.m. No syncope or near syncope. No events on telemetry. Recommendations: * Jardiance 10mg daily added 06/10/2023 due to heart failure with preserved ejection fraction and insulin resistance. * Discontinue IV furosemide. * Transition to oral furosemide. * Advised patient to reduce daily fluid intake. * Restrict sodium intake to less than 1.5 g daily. * Continue metoprolol, lisinopril, spironolactone and rosuvastatin as ordered. * Outpatient sleep medicine eval. LUCIANO will need to be addressed with CDL. * Cardiology will sign off. Please call with additional concerns/questions. I spent a total of 40 minutes on the date of service in preparation, delivery, and documentation of the care provided to this patient, excluding any time spent in the performance of separately billed services. Carlos Rizo DO [facility] Subjective Patient seen and examined at the bedside. Denies chest pain or shortness of breath. Nursing reports episode of lightheadedness earlier this a.m. No hypotension or hypoglycemia documented. Telemetry reveals sinus rhythm. Review of Systems Review of Systems: All systems reviewed & are unremarkable except as noted in HPI & below Physical Exam Physical Exam: General: no acute distress and stated age Eyes: conjunctiva are pink and non-injected, sclera clear Neck: normal jugular venous pulse, no hepatojugular reflux Chest: normal shape and normal respiratory effort Lungs: clear to auscultation and percussion Cardiac Exam: - regular heart sounds, no murmurs, rubs, or gallops, no jugular venous distention Abdomen: abdomen soft, non-tender, no abnormal masses and no hepatosplenomegaly Musculoskeletal: no gait disturbance, no weakness Extremities: Trace LE edema Neuro:awake, conversant, follows commands, no focal motor deficits Psych: appropriate affect and insight. Results & Data Vital Signs (Past 12 Hours) Vital Signs Temp Pulse Pulse Resp BP Pulse Ox O2 Del Method 06/11/24 10:57 36.6 C 96 H 18 124/79 95 Room Air 06/11/24 10:40 94 H 06/11/24 07:13 36.6 C 91 H 18 116/70 96 Room Air 06/11/24 05:56 90 06/11/24 05:00 06/11/24 03:14 36.8 C 96 H 18 127/85 93 Room Air O2 Del Method 06/11/24 10:57 06/11/24 10:40 06/11/24 07:13 06/11/24 05:56 06/11/24 05:00 Room Air 06/11/24 03:14 Laboratory Results Comprehensive Metabolic Panel 06/11/24 Range/Units 05:49 Sodium 134 L (136-145) mmol/L Potassium 4.3 (3.5-5.1) mmol/L Chloride 97 L (98-107) mmol/L Carbon Dioxide 30 (21-32) mmol/L BUN 29 H (6-23) mg/dl Creatinine 1.35 (0.6-1.4) mg/dl Glucose 109 H (70-99(Fasting)) mg/dl Calcium 9.3 (8.6-10.3) mg/dl Intake and Output 06/10/24 06/11/24 06/11/24 22:59 06:59 14:59 Intake Total 1150 / 1400 250 / 1400 1000 / 1000 Output Total 3225 / 3225 950 / 950 Balance -2075 / -1825 250 / -1825 50 / 50 Intake: Oral 1150 / 1400 250 / 1400 1000 / 1000 Output: Urine 3225 / 3225 950 / 950 Other: Weight 133.8 kg Weight Measurement Method Built in [facility] Diagnostic Findings Telemetry reviewed: NSR. No aarrhythmias Medications Administered Current Inpatient Medications Acetaminophen (Acetaminophen 325 Mg Tab) 650 mg PO Q6H PRN PRN Reason: Pain or Fever Stop: 07/08/24 02:12 Dextrose (Dextrose 50% 50 Ml Syringe) 25 - 50 ml IV UD PRN; Protocol PRN Reason: Hypoglycemia Protocol Stop: 07/08/24 02:12 Empagliflozin (Empagliflozin 10 Mg Tab) 10 mg PO DAILY [facility] Stop: 07/10/24 15:14 Last Admin: 06/11/24 08:08 Dose: 10 mg Furosemide (Furosemide 40 Mg Tab) 40 mg PO QAM [facility] Stop: 07/12/24 08:59 Glucagon (Glucagon For Inj 1 Mg Vial) 1 mg SQ UD PRN; Protocol PRN Reason: Hypoglycemia Protocol Stop: 07/08/24 02:12 Glucose (Glucose 40% Gel 15 Gm Tube) 15 - 30 gm PO UD PRN; Protocol PRN Reason: Hypoglycemia Protocol Stop: 07/08/24 02:12 Glucose (Glucose 10 Tab/Tube) 4 - 8 tab PO UD PRN; Protocol PRN Reason: Hypoglycemia Protocol Stop: 07/08/24 02:12 Heparin Sodium (Porcine) (Heparin Sod 5,000 Unit/0.5 Ml Vial) 7,500 units SQ Q12 [facility] Stop: 07/08/24 08:59 Last Admin: 06/11/24 08:13 Dose: 7,500 units Insulin Aspart (Insulin Aspart Per Unit Charge) 0 units SC ACHS [facility] Stop: 07/08/24 07:29 Last Admin: 06/11/24 08:52 Dose: 8 units Lisinopril (Lisinopril 40 Mg Tab) [facility] Stop: 07/08/24 08:59 Last Admin: 06/11/24 08:08 Dose: 40 mg Metoprolol Succinate (Metoprolol Succ 25mg Ext Rel Tab) [facility] Stop: 07/08/24 08:59 Last Admin: 06/11/24 08:07 Dose: 25 mg Miscellaneous (Carbohydrates For Hypoglycemia ) 15 - 30 gm PO UD PRN PRN Reason: Hypoglycemia Protocol Stop: 07/08/24 02:12 Nitroglycerin (Nitroglycerin Sl 0.4 Mg/Tab Tab) 0.4 mg SL Q5M PRN PRN Reason: Chest Pain Stop: 07/08/24 02:12 Polyethylene Glycol (Polyethylene (Miralax) 17 Gm Pack) 17 gm PO DAILY PRN PRN Reason: Constipation Stop: 07/08/24 02:12 Rosuvastatin Calcium (Rosuvastatin Calcium 5 Mg Tab) 5 mg PO [facility] Stop: 07/08/24 08:59 Last Admin: 06/11/24 08:07 Dose: 5 mg Spironolactone (Spironolactone 25 Mg Tab) 25 mg PO [facility] Stop: 07/10/24 08:59 Last Admin: 06/11/24 08:08 Dose: 25 mg
--- NOTE | 2024-06-11 16:44 | Hospitalist Progress Note ---
Date of Service June 11, 2024 Assessment & Plan (1) Acute CHF: Plan: 44-year-old male with past med history significant for type 2 diabetes, hypertension, morbid obesity, obstructive sleep apnea currently not using CPAP as not tolerating it as per patient comes because of shortness of breath going on since last Monday and also swelling in the lower extremities since same time.Also complaining of 4/5 in severity pain in lower extremities. Also having cough. Denies any chest pain. No fevers. No nausea. No abdominal pain. Normal bowel and bladder movements. No headache. No dizziness. No blurred vision. No earache no runny nose or sore throat. Hemodynamics are okay. Patient says he started taking testosterone monthly injections couple of months ago.Patient states he stopped taking Mounjaro couple of weeks ago as his sugar levels were going down. Acute CHF-likely diastolic/volume overload Presents with shortness of breath and bilateral lower extremity edema likely complicated by volume overload The patient is morbidly obese with recent increase in weight and worsening of symptoms Received intravenous Lasix and is continuing since admission with adequate diuresis I's and O's Echo of the heart did not show any significant LV dysfunction and only showed grade 1 diastolic dysfunction Appreciate cardiology input and recommendation Doubt any pneumonia and will discontinue antibiotics Has been feeling much better with enough diuresis Will continue current doses of Lasix and spironolactone Will get PT and OT evaluation prior to discharge Lasix has been changed to oral and spironolactone has been added including Jardiance Has had episode of dizziness with sweating and low blood sugar of 80 during physical therapy Will decrease the insulin doses and monitor tonight in the hospital Pericardial effusion Chest x-ray and CT scan did show cardiomegaly and suspected medical patient Coronary artery show minimal circumferential pericardial effusion without tamponade No further investigation or management B/l Lower extremity edema D-dimer is not elevated-[id number] Initial ultrasound was inconclusive for DVT Will rescan following decrease in the swelling Will rescan tomorrow- negative for any deep venous thrombosis Bilateral leg edema has improved a lot Obstructive sleep apnea Not using CPAP as he could not tolerate it Nocturnal pulse oximetry showed significant desaturation and will require oxygen He was agreeable to wear nighttime oxygen through nasal cannula but does not want to use any CPAP and/or BiPAP He has significant nocturnal desaturation and will require 2 L of oxygen at nighttime Morbid obesity Counseling Type 2 diabetes Stopped Mounjaro couple of weeks ago as his sugars were going down as per his patient Will check HbA1c levels- 5.8 Insulin sliding scale Close follow-up Jardiance has been added and blood sugar is noted to be low at 80 with symptoms Hypertension On lisinopril and metoprolol succinate Blood pressure seems to be stable and on the upper side at 148/85 no acute complaints Elevated hemoglobin Follow repeat labs Likely secondary to obstructive sleep apnea with nocturnal hypoxemia DVT prophylaxis Heparin subcu Disposition Telemetry Full code. (2) Volume overload: (3) HTN (hypertension): (4) Pericardial effusion: (5) Diabetes: (6) Sleep apnea: Admission and Anticipated Discharge Date Admission Date: June 08, 2024 Subjective 06/09/2024 The patient was seen and examined in the telemetry unit He has been feeling better with decreasing shortness of breath and improvement of his edema Denies any chest pain and/or palpitation He was noted to have significant general be saturation 06/10/2024 The patient was seen and examined in telemetry unit He has been feeling much better and denies any symptoms at rest He will have PT and OT evaluation prior to discharge likely tomorrow 06/11/2024 The patient was seen and examined in telemetry unit He has had episode of sweating and dizziness with ambulation during physical therapy and blood sugar was noted to be low at 80s His insulin doses will be decreased and will have repeat physical therapy tomorrow before discharge He will be given 2 L of oxygen at nighttime for nocturnal desaturation Review of Systems Review of Systems: All systems reviewed and are unremarkable except as noted below Physical Exam Physical Exam: Sitting at the edge of the bed with some distress due to shortness of breath Constitutional: well developed, well nourished, + ill appearing and + morbidly obese Eyes: PERRL, conjunctivae normal, anicteric sclerae ENMT: external ear and nose normal, oropharynx normal Neck: trachea midline, no thyromegaly Respiratory: + respiratory distress (Minimal respirat ory distress at rest) Auscultation: + diminished lung sounds and + crackles (Occasional crackles at the bases) Cardiovascular: Rate/Rhythm: regular rate, regular rhythm and + tachycardic Heart Sounds: normal S1 and normal S2; no murmur Extremities: + edema (1+ edema bilaterally and the initial edema has improved about) Gastrointestinal (Abdomen): Inspection/Auscultation: + abdomen distended and normal bowel sounds Percussion/Palpation: abdomen soft; abdomen nontender Musculoskeletal: No acute arthritis involving any of the joints Neurologic: normal touch/pain/proprioception and moves all extremities; no focal motor deficits Psychiatric: A+Ox3, euthymic affect Lymphatic: no cervical or axillary lymphadenopathy Results & Data Results & Data Vital Signs (Past 12 Hours) Vital Signs Temp Pulse Pulse Resp BP Pulse Ox O2 Del Method 06/11/24 15:06 36.5 C 97 H 18 129/82 97 Room Air 06/11/24 13:10 86 06/11/24 10:57 36.6 C 96 H 18 124/79 95 Room Air 06/11/24 10:40 94 H 06/11/24 07:13 36.6 C 91 H 18 116/70 96 Room Air 06/11/24 05:56 90 06/11/24 05:00 O2 Del Method 06/11/24 15:06 06/11/24 13:10 06/11/24 10:57 06/11/24 10:40 06/11/24 07:13 06/11/24 05:56 06/11/24 05:00 Room Air Laboratory Results BMP 06/11/24 05:49 Sodium 134 L Potassium 4.3 Chloride 97 L Carbon Dioxide 30 BUN 29 H Creatinine 1.35 Glucose 109 H Calcium 9.3 Medications Administered Current Inpatient Medications Acetaminophen (Acetaminophen 325 Mg Tab) 650 mg PO Q6H PRN PRN Reason: Pain or Fever Stop: 07/08/24 02:12 Dextrose (Dextrose 50% 50 Ml Syringe) 25 - 50 ml IV UD PRN; Protocol PRN Reason: Hypoglycemia Protocol Stop: 07/08/24 02:12 Empagliflozin (Empagliflozin 10 Mg Tab) 10 mg PO DAILY [facility] Stop: 07/10/24 15:14 Last Admin: 06/11/24 08:08 Dose: 10 mg Furosemide (Furosemide 40 Mg Tab) 40 mg PO QAM [facility] Stop: 07/12/24 08:59 Glucagon (Glucagon For Inj 1 Mg Vial) 1 mg SQ UD PRN; Protocol PRN Reason: Hypoglycemia Protocol Stop: 07/08/24 02:12 Glucose (Glucose 40% Gel 15 Gm Tube) 15 - 30 gm PO UD PRN; Protocol PRN Reason: Hypoglycemia Protocol Stop: 07/08/24 02:12 Glucose (Glucose 10 Tab/Tube) 4 - 8 tab PO UD PRN; Protocol PRN Reason: Hypoglycemia Protocol Stop: 07/08/24 02:12 Heparin Sodium (Porcine) (Heparin Sod 5,000 Unit/0.5 Ml Vial) 7,500 units SQ Q12 [facility] Stop: 07/08/24 08:59 Last Admin: 06/11/24 08:13 Dose: 7,500 units Insulin Aspart (Insulin Aspart Per Unit Charge) 0 units SC ACHS [facility] Stop: 07/08/24 07:29 Last Admin: 06/11/24 13:35 Dose: 3 units Lisinopril (Lisinopril 40 Mg Tab) 40 mg PO QAM [facility] Stop: 07/08/24 08:59 Last Admin: 06/11/24 08:08 Dose: 40 mg Metoprolol Succinate (Metoprolol Succ 25mg Ext Rel Tab) 25 mg PO QAM [facility] Stop: 07/08/24 08:59 Last Admin: 06/11/24 08:07 Dose: 25 mg Miscellaneous (Carbohydrates For Hypoglycemia ) 15 - 30 gm PO UD PRN PRN Reason: Hypoglycemia Protocol Stop: 07/08/24 02:12 Nitroglycerin (Nitroglycerin Sl 0.4 Mg/Tab Tab) 0.4 mg SL Q5M PRN PRN Reason: Chest Pain Stop: 07/08/24 02:12 Polyethylene Glycol (Polyethylene (Miralax) 17 Gm Pack) 17 gm PO DAILY PRN PRN Reason: Constipation Stop: 07/08/24 02:12 Rosuvastatin Calcium (Rosuvastatin Calcium 5 Mg Tab) [facility] Stop: 07/08/24 08:59 Last Admin: 06/11/24 08:07 Dose: 5 mg Spironolactone (Spironolactone 25 Mg Tab) [facility] Stop: 07/10/24 08:59 Last Admin: 06/11/24 08:08 Dose: 25 mg
[2024-06-12 07:22] VITALS: RESP 20
[2024-06-12 07:42] VITALS: BP 156/99; PULSE 77; TEMP 97.9; O2SAT 95
[2024-06-12] MEDS: FUROSEMIDE 40 MG TAB PO SCH (08:59)
--- NOTE | 2024-06-12 11:01 | Discharge Summary ---
Discharge Summary Date of Service June 12, 2024 Principal Dx & Hospital Course #1 = Principal Diagnosis (1) Acute on chronic diastolic heart failure: (2) Volume overload: (3) Obesity hypoventilation syndrome: (4) Nocturnal hypoxemia due to obesity: (5) HTN (hypertension): (6) Morbid obesity: (7) Pericardial effusion: (8) Diabetes: (9) Sleep apnea: Plan Patient presented to the emergency room with increasing shortness of breath and swelling. Noted to be volume overloaded. Patient was admitted to the hospital. He was diuresed with IV Lasix. Cardiology consultation was obtained. Echocardiogram was performed. Echocardiogram showed normal ejection fraction and some diastolic dysfunction no evidence of pulmonary hypertension. A pericardial effusion with no evidence of tamponade. Patient responded to diuresis. He was transition to oral Lasix and Aldactone. At his leg swelling ultrasound lower extremity was performed. Initially equivocal exam repeat lower extremity ultrasound was negative for DVT. Patient also had nocturnal oximetry testing. Patient has no sleep apnea, does not tolerate CPAP. He did show that he was hypoxic and will be arranging home oxygen for him. On the day of discharge his swelling had significantly improved. He his shortness of breath had resolved. He was tolerating transition to oral medications. He can be discharged home with outpatient follow-up with his PCP, sleep medicine and cardiology. His is at bedside at time of discharge and understands plan of care. Notes For Next Care Provider Follow-up with cardiology Recommend following up with pulmonary/sleep medicine for further management, monitoring of his sleep apnea/obesity hypoventilatory syndrome and nocturnal hypoxia Recommend BMP in 10 to 14 days Medication Changes From Visit Lasix, Aldactone and Jardiance added to his medical regimen Admission HPI Per Admitting Provider 44-year-old male with past med history significant for type 2 diabetes, hypertension, morbid obesity, obstructive sleep apnea currently not using CPAP as not tolerating it as per patient comes because of shortness of breath going on since last Monday and also swelling in the lower extremities since same time.Also complaining of 4/5 in severity pain in lower extremities. Also having cough. Denies any chest pain. No fevers. No nausea. No abdominal pain. Normal bowel and bladder movements. No headache. No dizziness. No blurred vision. No earache no runny nose or sore throat. Hemodynamics are okay. Patient says he started taking testosterone monthly injections couple of months ago.Patient states he stopped taking Mounjaro couple of weeks ago as his sugar levels were going down. Past medical history. As mentioned above Past surgical history. Lumbosacral spine injection. Orchiopexy for undescended testes. Small bowel endoscopy with biopsy. Vasectomy. Social history. . Smokes 0.1 pack a day for last 18 years. Alcohol rarely. No drug use. Family history. Father had [place] at age 48. Hypertension. Maternal grandfather from [place] at age of 46. Paternal grandfather had hypertension and from [place]. Aunt has diabetes Discharge Exam Constitutional: Alert, morbidly obese, nontoxic HEENT: Mucous membranes moist. Lungs: Decreased breath sounds, few crackles at bases CV: S1-S2, regular Abdomen: Soft, nontender, nondistended Extremities: 1+ chronic edema Neuro: No focal deficits Psych: Cooperative, normal mood Updated Medication List Medication Instructions Recorded Confirmed Type lisinopril 40 mg tablet 40 mg PO QAM 06/07/24 06/07/24 History meloxicam 15 mg tablet 15 mg PO DAILY PRN Pain 06/07/24 06/07/24 History metoprolol succinate 25 mg 25 mg PO QAM 06/07/24 06/07/24 History tablet,extended release 24 hr rosuvastatin 5 mg tablet 5 mg PO QAM 06/07/24 06/07/24 History testosterone 1 dose INJ DAILY 06/08/24 06/08/24 History empagliflozin 10 mg tablet 10 mg PO DAILY #30 tabs 06/12/24 Rx (Jardiance) furosemide 40 mg tablet 40 mg PO QAM #30 tabs 06/12/24 Rx spironolactone 25 mg tablet 25 mg PO QAM #30 tabs 06/12/24 Rx Hospital Stay Data Consultations 06/07/24 23:42 ED Decision to Admit Stat 06/08/24 08:00 Consult Cardiology Routine Diagnostic Imagining Performed 06/08/24 02:13 US venous doppler LE BI Urgent 06/08/24 05:56 CT angio chest PE protocol Urgent 06/10/24 07:12 US venous doppler LE Routine Reviewed imaging, laboratory and diagnostic studies. Pertinent findings as below. Echocardiogram as noted above, refer you to the full report for details Ultrasound lower extremity showed no evidence of DVT CTA of the chest showed no evidence of PE, moderate cardiomegaly BMP from 06/11/2024 reviewed. Creatinine 1.35 Hemoglobin A1c 5.8% Pending Results Patient Have Any Pending Studies at Discharge: No Discharge Instructions Given to Patient (Per Discharging Provider) Take medications as prescribed Strongly recommend you follow-up with pulmonary sleep medicine to follow your nocturnal hypoxia and see what other options he may have as far as treating your symptoms with CPAP Total Time Total Time Spent Total Time Spent (In Minutes): 35
--- NOTE | 2024-06-12 13:15 | Cardiology Progress Note ---
Date of Service June 12, 2024 Assessment & Plan (1) Volume overload: (2) HTN (hypertension): (3) Pericardial effusion: Plan 06/09/[address] Snyder Patient with leg swelling and volume overload, but I am uncertain I would characterize this as shortness of breath with clear lungs noted at present, and normal to hyperdynamic left ventricular systolic function. Patient notably has 3 canisters of iced tea in his room as well as a 20 ounce coffee. He states he drinks at least 1 container of iced tea per day and drinks "a lot of coffee ". Based on his nocturnal pulse oximetry he likely has underlying obstructive sleep apnea for which outpatient evaluation is recommended. Agree with ongoing treatment to include furosemide 40 mg IV twice daily, lisinopril, metoprolol. Lower extremity venous duplex revealed possible partial occlusive thrombus within the proximal right popliteal vein. Study technically limited due to the presence of edema. May be prudent to reassess after edema improved with diuretic therapy. Agree with subcutaneous heparin for DVT prophylaxis If DVT felt not to be present. If antibiotics felt to be indicated, consider changing the doxycycline to oral medication to allow for less fluid input. I have added an ESR and CRP to his laboratory studies. ESR was only minimally elevated at 16 mm/h (normal 0-15) and a C-reactive protein was only minimally elevated at 0.88 mg/dL. I therefore do not believe the pericardial effusion is inflammatory and as noted, appears to be a chronic finding. Continue outpatient rosuvastatin. Remain in hospital for ongoing diuretic therapy today. 06/10/24: Patient with ongoing diuresis since admission. Negative 5.8 L since admission Weight down possible 9 kg since admission if accurate Repeat venous duplex negative for DVT. Edema improving. Approaching euvolemic state. Received furosemide 40 mg IV this morning. anticipate transitioning to oral furosemide 40 mg daily with spironolactone in the next 24 hours. Continue metoprolol, lisinopril, rosuvastatin. Patient with nocturnal hypoxia, LUCIANO. Intolerant to CPAP? 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 Sleep med appt as outpatient. 06/11/24: patient doing well. Appears euvolemic. Stop IV lasix and transition to oral lasix 40 mg daily tomorrow. Continue spironolactone 25 mg daily Jardiance added yesterday and continue on discharge. Continue metoprolol and lisinopril. Fluid restriction, daily weight, sodium restrictions discussed with patient. Follow up with sleep med and treatment of LUCIANO recommended. Outpatient cardiology follow up recommended in 2-4 weeks. Consider outpatient ischemic work up given comorbidities and dyspnea Follow up BMP recommended in 3-5 days with med adjustments. Stable for discharge today or tomorrow. Will sign off. Please contact information technology analyst cardiology provider with additional questions or concerns 06/12/24: No recurrent episodes of dizziness, hypoglycemia. Tolerating medications appears euvolemic. Continue furosemide 40 mg daily wiht spironolactone 25 mg and jardiance continue metoprolol and lisinopril. Ischemic work up as outpatient Fluid striction and daily weight encouraged BMP in several days as outpatient. 2-4 week cardio follow up. Case discussed with Dr. Rizo I spent a total of 30 minutes on the date of service in preparation, delivery, and documentation of the care provided to this patient, excluding any time spent in the performance of separately billed services. Kimberly Nava PA-C Department of Cardiology, [facility] This chart was completed in part utilizing Speech Voice Recognition Software. Grammatical errors, random word insertions, pronoun errors, and incomplete sentences are an occasional consequence of this system due to software limitations, ambient noise, and hardware issues. Any formal questions or concerns about the content, text, or information contained within the body of this dictation should be directly addressed to the provider for clarification. Admission and Anticipated Discharge Date Admission Date: June 08, 2024 Supervising Physician Co-Signing Physician Notes I have personally performed a history and physical examination on the patient. I have reviewed the advance practitioner's documentation, and I agree with, and take responsibility for the plan of care. 44-year-old male with volume overload, heart failure with preserved ejection fraction. Echocardiogram on admission demonstrating borderline hyperdynamic LV systolic function and small circumferential pericardial effusion without chest discomfort. ECG on admission does not suggest pericarditis. Minimally elevated ESR and CRP. Feeling better today. Edema improved. No recurrent lightheadedness. Requesting discharge. Recommendations: * Jardiance 10mg daily added 06/10/2023 due to heart failure with preserved ejection fraction and insulin resistance. * Continue oral furosemide. * Advised patient to reduce daily fluid intake. * Restrict sodium intake to less than 1.5 g daily. * Continue metoprolol, lisinopril, spironolactone and rosuvastatin as ordered. * Outpatient sleep medicine eval. LUCIANO will need to be addressed with CDL. * Cardiology will sign off. Please call with additional concerns/questions. I spent a total of 25 minutes on the date of service in preparation, delivery, and documentation of the care provided to this patient, excluding any time spent in the performance of separately billed services. Carlos Rizo DO, [facility] Subjective Patient feeling well. No recurrent dizziness episodes since yesterday. reports he knew this was related to glucose levels, as this happens at home sometimes. No syncope or near syncope. No chest pain. Reports his SOB has greatly improved as well as his edema. Review of Systems Review of Systems: All systems reviewed & are unremarkable except as noted in HPI & below Physical Exam Physical Exam: General: no acute distress and stated age Eyes: conjunctiva are pink and non-injected, sclera clear Neck: normal jugular venous pulse, no hepatojugular reflux Chest: normal shape and normal respiratory effort Lungs: clear to auscultation and percussion Cardiac Exam: regular heart sounds, no murmurs, rubs, or gallops, no jugular venous distention Abdomen: abdomen soft, non-tender, no abnormal masses and no hepatosplenomegaly Musculoskeletal: no gait disturbance, no weakness Extremities: Trace LE edema Neuro:awake, conversant, follows commands, no focal motor deficits Psych: appropriate affect and insight. Results & Data Vital Signs (Past 12 Hours) Vital Signs Temp Pulse Resp BP Pulse Ox O2 Del Method O2 Del Method 06/12/24 11:39 36.6 C 77 20 156/99 H 95 06/12/24 08:00 Room Air 06/12/24 07:20 36.6 C 77 20 156/99 H 95 Room Air 06/12/24 06:04 Room Air 06/12/24 03:38 36.6 C 89 19 110/72 92 Room Air Laboratory Results Intake and Output 06/11/24 06/12/24 06/12/24 22:59 06:59 14:59 Intake Total 950 / 3050 750 / 3050 Output Total 251 / 3552 1775 / 3552 Balance 699 / -502 -1025 / -502 Intake: Oral 950 / 3050 750 / 3050 Output: Urine 250 / 3550 1775 / 3550 # Bowel Movements 1 / 2 Other: Weight 134.9 kg 134.9 kg Weight Measurement Method Built in [facility] Patient Weight 06/13/24 06:59 Weight 134.9 kg Diagnostic Findings Telemetry reviewed: NSR, no concerning arrhythmias Medications Administered Current Inpatient Medications Acetaminophen (Acetaminophen 325 Mg Tab) 650 mg PO Q6H PRN PRN Reason: Pain or Fever Stop: 07/08/24 02:12 Dextrose (Dextrose 50% 50 Ml Syringe) 25 - 50 ml IV UD PRN; Protocol PRN Reason: Hypoglycemia Protocol Stop: 07/08/24 02:12 Empagliflozin (Empagliflozin 10 Mg Tab) 10 mg PO DAILY [facility] Stop: 07/10/24 15:14 Last Admin: 06/12/24 08:59 Dose: 10 mg Furosemide (Furosemide 40 Mg Tab) 40 mg PO QAM [facility] Stop: 07/12/24 08:59 Last Admin: 06/12/24 08:59 Dose: 40 mg Glucagon (Glucagon For Inj 1 Mg Vial) 1 mg SQ UD PRN; Protocol PRN Reason: Hypoglycemia Protocol Stop: 07/08/24 02:12 Glucose (Glucose 40% Gel 15 Gm Tube) 15 - 30 gm PO UD PRN; Protocol PRN Reason: Hypoglycemia Protocol Stop: 07/08/24 02:12 Glucose (Glucose 10 Tab/Tube) 4 - 8 tab PO UD PRN; Protocol PRN Reason: Hypoglycemia Protocol Stop: 07/08/24 02:12 Heparin Sodium (Porcine) (Heparin Sod 5,000 Unit/0.5 Ml Vial) 7,500 units SQ Q12 [facility] Stop: 07/08/24 08:59 Last Admin: 06/12/24 09:00 Dose: Not Given Insulin Aspart (Insulin Aspart Per Unit Charge) 0 units SC ACHS [facility] Stop: 07/08/24 07:29 Last Admin: 06/12/24 12:42 Dose: Not Given Lisinopril (Lisinopril 40 Mg Tab) 40 mg PO QAM [facility] Stop: 07/08/24 08:59 Last Admin: 06/12/24 08:59 Dose: 40 mg Metoprolol Succinate (Metoprolol Succ 25mg Ext Rel Tab) 25 mg PO QAM [facility] Stop: 07/08/24 08:59 Last Admin: 06/12/24 08:59 Dose: 25 mg Miscellaneous (Carbohydrates For Hypoglycemia ) 15 - 30 gm PO UD PRN PRN Reason: Hypoglycemia Protocol Stop: 07/08/24 02:12 Nitroglycerin (Nitroglycerin Sl 0.4 Mg/Tab Tab) 0.4 mg SL Q5M PRN PRN Reason: Chest Pain Stop: 07/08/24 02:12 Polyethylene Glycol (Polyethylene (Miralax) 17 Gm Pack) 17 gm PO DAILY PRN PRN Reason: Constipation Stop: 07/08/24 02:12 Rosuvastatin Calcium (Rosuvastatin Calcium 5 Mg Tab) 5 mg PO [facility] Stop: 07/08/24 08:59 Last Admin: 06/12/24 08:59 Dose: 5 mg Spironolactone (Spironolactone 25 Mg Tab) 25 mg PO [facility] Stop: 07/10/24 08:59 Last Admin: 06/12/24 08:59 Dose: 25 mg
== END 2024-06-12 13:24 | disposition home or self-care (01) | DRG 291 ==
LOC: ED 20:42 → SUATTDRO 06-08 00:41 → EDINP 06-08 00:41 → 4W 06-08 02:15